=== PATIENT | female | born 1950 | race Caucasian/White ===

== ENCOUNTER → 2017-10-10 | Outpatient (CLI) | payer MEDICARE, BC ==
--- NOTE | 2017-10-10 14:20 | XR ---
EXAMINATION TYPE: XR chest 2V DATE OF EXAM: 10/10/2017 COMPARISON: Prior chest x-ray 04/11/2016 HISTORY: Cough TECHNIQUE: Frontal and lateral views of the chest are obtained. FINDINGS: The patient is rotated. Surgical clips present in the right upper quadrant. There is no fo mike air space opacity, pleural effusion, or pneumothorax seen. The cardiac silhouette size is within normal limits. Old left clavicular fracture appears healed. There is improved aeration as compared to prior exam. Increased AP diameter chest may be indicative of underlying COPD. The osseous structur es are intact. IMPRESSION: No acute cardiopulmonary process.
== END | disposition home or self-care (01) ==
LOC: RADXRMAIN 12:54
PROVIDERS: ATTEND Family Medicine
DX: R05 Cough (principal)
CPT/HCPCS: 71046

== ENCOUNTER → 2019-02-10 | Outpatient (CLI) | payer MEDICARE, BC ==
[2019-02-10 18:44] LABS: African American GFR (CKD) 86.6 (60.0-200.0)
[2019-02-10 19:42] LABS: Rheumatoid Factor <4 IU/mL (0-15)
[2019-02-10 19:52] LABS: Folate, Serum 11.5 ng/mL
[2019-02-10 22:51] LABS: Anti-DNA, DS unit <1.0 IU/mL; DNA Double-Stranded NEGATIVE (NEGATIVE)
[2019-02-12 15:25] LABS: Lyme IgG/IgM 0.08 Index
== END | disposition home or self-care (01) ==
LOC: LABWHC1 11:43
PROVIDERS: ATTEND Psychiatry & Neurology Neurology
DX: R41.3 Other amnesia (principal)
CPT/HCPCS: 36415; 82175; 82565; 82570; 82607; 82746; 83655; 83825; 84520; 86038; 86225; 86431; 86618

== ENCOUNTER 2020-06-28 11:19 | Inpatient (IN) | payer MEDICARE, BC ==
[2020-06-28] MEDS ORDERED: SODIUM CHLORIDE 0.9% 500 ML 500 ML IV ONE (11:37)
[2020-06-28] MEDS ORDERED: ONDANSETRON 4 MG/2 ML VIAL IVP STA (11:56)
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
--- NOTE | 2020-06-28 12:27 | XR ---
EXAMINATION TYPE: XR chest 1V portable DATE OF EXAM: 06/28/2020 COMPARISON: Prior chest x-ray 10/10/2017 HISTORY: Nausea and vomiting, suspected Covid pneumonia TECHNIQUE: Single frontal view of the chest is obtained. FINDINGS: There is patchy density in the left lung peripherally greater than right, pleural effusion , or pneumothorax seen. The cardiac silhouette size is within normal limits. There are overlying le ads, surgical clips again noted in the right upper quadrant. Aorta is dense. The osseous structures a re intact, old left clavicular fracture is healed and stable. IMPRESSION: Findings could be indicative of pneumonia, correlate, follow-up suggested
[2020-06-28 12:39] LABS: Basophils # (A) 0.1 k/uL (0-0.2); Basophils % (A) 1 %; Eosinophils # (A) 0.2 k/uL (0-0.7); Eosinophils % (A) 2 %; HCT 46.4 % (34.0-46.0); HGB 15.2 gm/dL (11.4-16.0); Lymphocytes # (A) 2.9 k/uL (1.0-4.8); Lymphocytes % (A) 28 %; MCH 30.6 pg (25.0-35.0); MCHC 32.7 g/dL (31.0-37.0); MCV 93.7 fL (80.0-100.0); Mean Platelet Volume 7.4; Monocytes # (A) 0.6 k/uL (0-1.0); Monocytes % (A) 6 %; Neutrophils # (A) 6.1 k/uL (1.3-7.7); Neutrophils % (A) 60 %; Platelet Count 449 k/uL (150-450); RBC 4.96 m/uL (3.80-5.40); RDW 12.4 % (11.5-15.5); WBC 10.1 k/uL (3.8-10.6)
[2020-06-28 12:51] LABS: Albumin 4.4 g/dL (3.5-5.0); C Reactive Protein 10.6 mg/L (<10.0); Calcium 10.1 mg/dL (8.4-10.2); Magnesium 2.1 mg/dL (1.6-2.3); Potassium 4.4 mmol/L (3.5-5.1); Total Bilirubin 0.7 mg/dL (0.2-1.3); Total Protein 7.4 g/dL (6.3-8.2)
[2020-06-28] MEDS ORDERED: KETOROLAC 15 MG/ML 1 ML VIAL IVP STA (13:00)
[2020-06-28] MEDS ORDERED: HYDROmorphone 0.5 MG/0.5 ML SYRINGE IVP STA (13:00)
[2020-06-28 13:01] LABS: INR 0.9 (<1.2); Prothrombin Time 9.7 sec (9.0-12.0)
[2020-06-28 13:09] LABS: D-Dimer 0.77 mg/L FEU (<0.60); Partial Thromboplastin Time 17.9 sec (22.0-30.0)
[2020-06-28] MEDS ORDERED: HEPARIN SODIUM,PORCINE 5,000 UNIT/ML 1 ML VIAL IV PRN (14:07)
[2020-06-28] MEDS ORDERED: ASPIRIN 325 MG TAB PO STA (14:07)
[2020-06-28] MEDS ORDERED: HEPARIN SODIUM,PORCINE 5,000 UNIT/ML 1 ML VIAL IV ONE (14:07)
[2020-06-28] MEDS ORDERED: ONDANSETRON 4 MG/2 ML VIAL IVP PRN (14:45)
[2020-06-28] MEDS ORDERED: NALOXONE 0.4 MG/ML 1 ML VIAL IV PRN (14:45)
[2020-06-28] MEDS ORDERED: ACETAMINOPHEN TAB 325 MG TAB PO PRN (14:45)
[2020-06-28] MEDS: HEPARIN SOD,PORK IN 0.45% NACL 25,000 UNIT in 0.45% NACL 1 250ML.BAG IV SCH (14:58)
--- NOTE | 2020-06-28 15:00 | CT ---
EXAMINATION TYPE: CT angio chest DATE OF EXAM: 06/28/2020 2:44 PM COMPARISON: 04/27/2016 HISTORY: Positive d-dimer CT DLP: 275.7 mGycm Automated exposure control for dose reduction was used. CONTRAST: CTA scan of the thorax is performed with IV Contrast, patient injected with 100, wasted 23 mL of Isov ue 370, pulmonary embolism protocol. . FINDINGS: LUNGS: There are patchy areas of infiltrate scattered bilaterally greater in the periphery. Some of t he nodular component. Findings could be on the basis of pneumonia. Neoplasm not excluded follow resol ution recommended. MEDIASTINUM: On axial image 48 there is a small focal filling defect within a right upper lobe pulmon terrence arterial branch. This could be artifactual although a small pulmonary embolism not excluded.. Th ere are no greater than 1 cm hilar or mediastinal lymph nodes. Coronary artery calcification noted. OTHER: Chronic deformity of the left clavicle. Hypertrophic and degenerative changes of the spine po stcholecystectomy changes noted. IMPRESSION: 1. There are scattered patchy areas of nodular infiltrate bilaterally was likely is postinfectious co rrelate for multifocal pneumonia. Underlying neoplasm not excluded although resolution. 2. There is no central pulmonary embolism. However, on axial image 48 there is a eccentric hypodensit y within upper lobe artery. This could be artifactual. Tiny pulmonary embolism not excluded correlate clinically.
[2020-06-28] MEDS: HYDROmorphone 0.5 MG/0.5 ML SYRINGE IVP PRN ×2 (15:05→23:28)
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
[2020-06-28 19:36] LABS: Ferritin 271.2 ng/mL (10.0-291.0)
[2020-06-28] MEDS: MEMANTINE 10 MG TAB PO SCH (21:30)
[2020-06-28] MEDS: ATORVASTATIN 20 MG TAB PO SCH (21:30)
[2020-06-28] MEDS: LORazepam 1 MG TAB PO SCH (21:30)
[2020-06-28] MEDS: METOPROLOL TARTRATE 50 MG TAB PO SCH (21:31)
[2020-06-28] MEDS: NITROGLYCERIN OINT 1 INCH/GM PACKET TOPICAL SCH ×2 (21:31→23:54)
[2020-06-28] MEDS: diphenhydrAMINE 50 MG CAP PO SCH (21:35)
[2020-06-29 05:40] LABS: Basophils # (A) 0.1 k/uL (0-0.2); Basophils % (A) 1 %; Eosinophils # (A) 0.2 k/uL (0-0.7); Eosinophils % (A) 2 %; HCT 35.7 % (34.0-46.0); Lymphocytes # (A) 2.1 k/uL (1.0-4.8); Lymphocytes % (A) 27 %; MCH 31.9 pg (25.0-35.0); MCV 93.9 fL (80.0-100.0); Monocytes # (A) 0.5 k/uL (0-1.0); Monocytes % (A) 6 %; Neutrophils # (A) 4.7 k/uL (1.3-7.7); Neutrophils % (A) 61 %; Platelet Count 253 k/uL (150-450); RDW 12.1 % (11.5-15.5); WBC 7.6 k/uL (3.8-10.6)
[2020-06-29 05:54] LABS: ALT 28 U/L (4-34); AST 123 U/L (14-36); African American GFR (CKD) >90 (>60 ml/min/1.73 sqM); Alkaline Phosphatase 92 U/L (38-126); Anion Gap 5 mmol/L; Blood Urea Nitrogen 16 mg/dL (7-17); Calcium 8.7 mg/dL (8.4-10.2); Carbon Dioxide 23 mmol/L (22-30); Chloride 105 mmol/L (98-107); Glucose 118 mg/dL (74-99); Non-African American GFR(CKD) >90 (>60 ml/min/1.73 sqM); Potassium 4.1 mmol/L (3.5-5.1); Sodium 133 mmol/L (137-145); Total Bilirubin 0.3 mg/dL (0.2-1.3); Total Protein 5.6 g/dL (6.3-8.2)
[2020-06-29 05:55] LABS: Albumin 3.1 g/dL (3.5-5.0)
[2020-06-29 06:03] LABS: HGB 12.1 gm/dL (11.4-16.0)
[2020-06-29] MEDS: HYDROmorphone 0.5 MG/0.5 ML SYRINGE IVP PRN (06:09)
[2020-06-29] MEDS: PANTOPRAZOLE 40 MG TABLET PO SCH (06:29)
[2020-06-29] MEDS ORDERED: ISOSORBIDE MONONITRATE ER 30 MG TAB.ER.24H PO SCH (09:00)
[2020-06-29] MEDS ORDERED: ATORVASTATIN 80 MG TAB PO STA (09:08)
[2020-06-29] MEDS ORDERED: ALPRAZolam 0.5 MG TAB PO PRN (09:08)
[2020-06-29] MEDS ORDERED: ASPIRIN 325 MG TAB PO STA (09:08)
[2020-06-29] MEDS ORDERED: ALPRAZolam 0.25 MG TAB PO PRN (09:08)
[2020-06-29] MEDS ORDERED: NITROGLYCERIN SL TABS 0.4 MG TAB SUBLINGUAL PRN (09:08)
[2020-06-29] MEDS ORDERED: SODIUM CHLORIDE 0.9% 1,000 ML in EMPTY BAG 1 BAG IV ONE (09:08)
[2020-06-29] MEDS: LORazepam 1 MG TAB PO SCH ×2 (09:13→21:22)
[2020-06-29] MEDS: MEMANTINE 10 MG TAB PO SCH ×2 (09:14→21:22)
[2020-06-29] MEDS: VITAMIN E (DL,TOCOPHERYL ACET) 400 UNIT CAP PO SCH (09:14)
[2020-06-29] MEDS: METOPROLOL TARTRATE 50 MG TAB PO SCH ×2 (09:14→21:22)
[2020-06-29] MEDS: NITROGLYCERIN OINT 1 INCH/GM PACKET TOPICAL SCH (09:15)
[2020-06-29] MEDS ORDERED: IV FLUID CONTINUATION 1,000 ML IV ONE (09:41)
[2020-06-29] MEDS ORDERED: MIDAZOLAM 2 MG/2 ML VIAL IVP ONE (09:53)
[2020-06-29] MEDS ORDERED: LIDOCAINE 1% INJ 10MG/ML (20 ML MDV) SQ ONE (10:07)
[2020-06-29] MEDS: VERAPAMIL SYRINGE (5 MG/10 ML) INTRAARTER ONE ×2 (10:08→10:18)
[2020-06-29] MEDS ORDERED: IOPAMIDOL-370 125ML BTL INJ ONE (10:18)
[2020-06-29] MEDS ORDERED: RX INFO: IV CONTRAST WAS GIVEN 1 EACH MISC MISCELLANE PRN (10:31)
[2020-06-29] MEDS ORDERED: SODIUM CHLORIDE 0.9% 1,000 ML IV SCH (10:45)
--- NOTE | 2020-06-29 11:16 | CC ---
CARDIAC CATHETERIZATION REPORT DATE OF SERVICE: June 29, 2020. PERFORMING PHYSICIAN: Rhett Lees MD. PROCEDURE PERFORMED: 1. Selective right and left coronary angiogram. 2. Left heart catheterization. INDICATION: This is a very pleasant 70-year-old female patient with hypertension and dyslipidemia who was admitted to the hospital with chest discomfort and ruled in for acute coronary syndrome. A heart catheterization was advised. APPROACH: Right radial artery. COMPLICATION: None. LEVEL OF SEDATION: Moderate with sedation length of 13 minutes. PROCEDURE DESCRIPTION: After obtaining an informed consent, the patient was brought to the cardiac lab clerk. The right radial artery was cannulated using micropuncture technique, the micropuncture wire passed easily then I placed a 6-[place] sheath at the right radial artery. Selective right and left coronary angiogram performed with JR4 and JL3.5 catheters. Left heart catheterization was performed using the JR4 catheter which crossed the aortic valve then I did pullback across the valve. The procedure was completed without any complication. SELECTIVE CORONARY ANGIOGRAM: 1. The right coronary artery is a large caliber vessel. It is a dominant vessel. The RCA is angiographically normal. It distally bifurcates into PDA and PLV branches. The PLV branch appeared to have intermediate lesion in the range of 50%. 2. The left main is angiographically normal. It bifurcates into LCX and LAD. 3. The LCX proximally is a large caliber vessel. It is a nondominant vessel and has a lesion appeared to be in the range of 50% as well. 4. The LAD: The LAD is angiographically normal. In the very proximal to midportion gives rise into a diagonal branch which has a lesion appeared to be in the range of 50% as well. HEMODYNAMICS: The LVEDP was 10 to 12 mmHg without significant gradient across the aortic valve. CONCLUSION: 1. Intermediate triple-vessel coronary artery disease. 2. Normal LVEDP. POSTPROCEDURE MANAGEMENT: 1. Medical treatment. 2. Follow up with the patient. MMODL / IJN: [id number] /
--- NOTE | 2020-06-29 11:50 | P.PN ---
Subjective Progress Note Date: 06/29/20 HISTORY OF PRESENT ILLNESS 70-year-old female one of Dr. Guajardo patient with past medical history of CAD post [place], history of hypertension hyperlipidemia who was diagnosed with Covid 19 back in June 12 did not require any hospitalization had mild hypoxia did not require any oxygen. Her was hospitalized this last week with severe Covid 19 pneumonitis has been in the ICU since. Patient woke up this morning and all of a sudden developed to have midsternal chest pain become severe very intense aggravated with activity and stress her symptoms did not resolve with aspirin or Tylenol ended up coming to the emergency department after doing nitroglycerin and morphine her symptom subtle down. Her first troponin was elevated d-dimer was slightly bit elevated as well chest x-ray was clear with no sign of infection at the time. Patient ended up going for CTA which was not conclusive for possible peripheral small pulmonary embolism we'll consult pulmonary the meanwhile patient will remain on heparin drip until this is excluded. Also the second troponin came back to be much higher her EKG was atypical doesn't show any significant ST elevation patient was diagnosed with possible non-ST [place] will be hospitalized seen cardiology will be kept nothing by mouth for possible going for heart cath tomorrow morning. 06/29: Patient is seen on the cardiac stepdown unit. Patient states she had a rough night with continued midsternal chest pain. She is currently nothing by mouth and on heparin drip, cardiology on consult. He underwent heart catheterization today with Dr. Lees that revealed intermediate triple-vessel coronary artery disease and normal LVEDP, recommendations for medical management. There is a consult in place for pulmonary medicine regarding p ossible small pulmonary embolism. Echocardiogram has been obtained and report is pending. Repeat troponins have been 2.630 and 19.9. Patient has been afebrile, heart rate 67, blood pressure 94/61, pulse ox 95% on room air. REVIEW OF SYSTEMS CONSTITUTIONAL: Well-developed no acute respiratory distress. No fevers EYES: No icterus sclerae, no conjunctivitis. EARS, NOSE, MOUTH, THROAT, and FACE: No sore throat, lymphadenopathy, carotid bruits or deformity. RESPIRATORY: Positive chest pain no shortness of breath CARDIOVASCULAR: Positive angina with mild PND and orthopnea no edema. GASTROINTESTINAL: No Abd pain, Nausea or vomiting, no Diarrhea or constipation, No GI Bleed, no distention or masses. GENITOURINARY: Negative for Hematuria or UTI, no kidney stones. INTEGUMENT/BREAST: Negative for any muscular injury with mild osteoarthritis.. HEMATOLOGIC/LYMPHATIC: Negative for bleed or purpura. MUSCULOSKELTAL: Negative for Myalgia or arthralgia. NEURLOGICAL: No LOC, Sz or syncope, blurred vision dizziness or abnormality.. BEHAVIORAL/PSYCH: Negative. ENDOCRINE: Negative. PHYSICAL EXAMINATION General Appearance: Alert, cooperative, no distress, appears stated age. Patient resting comfortably in bed. Neck HEENT: Supple, no lymphadenopathy, no thyroid enlargement, no carotid bruits. Lungs: Clear to auscultation without crackles or wheezes no rhonchi, no deformity. Chest Wall: Decrease expansion with deep inspiration no tenderness and no deformity was found on exam, no costochondral pain or discomfort. Heart: Regular rate and rhythm, S1, S2 normal, no murmur, rub or gallop. Back: Symmetric, no curvature, ROM normal, no CVA tenderness. Abdomen: Soft, non-tender, bowel sounds active all four quadrants, no masses, no organomegaly. Extremities: Extremities normal, atraumatic, no cyanosis or edema. Pulses: 2+ and symmetric. Skin: Skin color, texture, tugor normal, no rashes or lesions. Neurologic: Alert oriented x3 cranial nerves II through XII intact, no motor deficit, no abnormal balance or gait. ASSESSMENT AND PLAN 1 unstable angina and recurrent chest pain. 2 non-ST [place]. Heart catheterization as above. Continue medical management with Lipitor 20 mg at bedtime, Lopressor 50 mg twice daily. 3 recent history of Covid 19 pneumonitis: Patient is not on any medication or management for that this point to keep in mind the possibility of coagulopathy and clotting is very high which why he should be careful about interpretation of the CT at this point. 4 small pulmonary embolism: With slightly positive CTA, patient be kept on heparin drip still seen pulmonary and possible starting anticoagulation after her heart cath. 5 history of CAD: Patient seen Dr. Mark on regular basis and had valvular heart disease as well no intervention require so far. 6 Hypertension: Has been on metoprolol 50 mg twice a day and isosorbide 50 mg daily. 7 hyperlipidemia: Remain on simvastatin 40 mg daily. 8 mild memory loss: Patient has been on Namenda 10 mg twice a day. 9 severe GERD: Continue patient on omeprazole 20 mg twice a day. 10 DVT prophylaxis: Patient is on anticoagulation currently. CODE STATUS: Full code. DISCHARGE PLAN Home. Impression and plan of care have been directed as dictated by the signing physician. Maryellen Raya nurse practitioner acting as scribe for signing physician. Objective - Vital Signs Vital signs: Vital Signs Temp 98.1 F 06/29/20 03:48 Pulse 61 06/29/20 03:48 Resp 18 06/29/20 03:48 BP 99/58 06/29/20 03:48 Pulse Ox 96 06/29/20 03:48 Intake & Output 06/28/20 06/29/20 06/29/20 18:59 06:59 18:59 Intake Total 67.393 Balance 67.393 Weight 77.111 kg 75 kg Intake: Intake, IV Titration 67.393 Amount Heparin Sod,Pork in 0.45% 67.393 NaCl 25,000 unit In 0.45 % NaCl 1 250ml.bag @ 12 UNITS/KG/HR 9.253 mls/hr IV .Q24H [facility] Rx#: [id number] Other: Voiding Method Toilet # Voids 2 1 - Labs CBC & Chem 7: 06/29/20 05:19 06/29/20 05:19 Labs: Abnormal Lab Results - Last 24 Hours (Table) 06/28/20 06/28/20 06/28/20 Range/Units 12:11 12:11 12:11 Hct 46.4 H (34.0-46.0) % APTT 17.9 L (22.0-30.0) sec D-Dimer 0.77 H (<0.60) mg/L FEU Sodium (137-145) mmol/L Carbon Dioxide 20 L (22-30) mmol/L Glucose 125 H (74-99) mg/dL Plasma Lactic Acid Harris (0.7-2.0) mmol/L AST (14-36) U/L Alkaline Phosphatase 128 H (38-126) U/L Troponin I (0.000-0.034) ng/mL C-Reactive Protein 10.6 H (<10.0) mg/L Total Protein (6.3-8.2) g/dL Albumin (3.5-5.0) g/dL 06/28/20 06/28/20 06/28/20 Range/Units 12:11 12:11 15:24 Hct (34.0-46.0) % APTT (22.0-30.0) sec D-Dimer (<0.60) mg/L FEU Sodium (137-145) mmol/L Carbon Dioxide (22-30) mmol/L Glucose (74-99) mg/dL Plasma Lactic Acid Harris 2.2 H* (0.7-2.0) mmol/L AST (14-36) U/L Alkaline Phosphatase (38-126) U/L Troponin I 0.193 H* 0.687 H* (0.000-0.034) ng/mL C-Reactive Protein (<10.0) mg/L Total Protein (6.3-8.2) g/dL Albumin (3.5-5.0) g/dL 06/28/20 06/28/20 06/29/20 Range/Units 18:21 21:21 05:19 Hct (34.0-46.0) % APTT 68.2 H (22.0-30.0) sec D-Dimer (<0.60) mg/L FEU Sodium 133 L (137-145) mmol/L Carbon Dioxide (22-30) mmol/L Glucose 118 H (74-99) mg/dL Plasma Lactic Acid Harris (0.7-2.0) mmol/L AST 123 H (14-36) U/L Alkaline Phosphatase (38-126) U/L Troponin I 2.630 H* (0.000-0.034) ng/mL C-Reactive Protein (<10.0) mg/L Total Protein 5.6 L (6.3-8.2) g/dL Albumin 3.1 L (3.5-5.0) g/dL 06/29/20 Range/Units 05:19 Hct (34.0-46.0) % APTT 54.8 H (22.0-30.0) sec D-Dimer (<0.60) mg/L FEU Sodium (137-145) mmol/L Carbon Dioxide (22-30) mmol/L Glucose (74-99) mg/dL Plasma Lactic Acid Harris (0.7-2.0) mmol/L AST (14-36) U/L Alkaline Phosphatase (38-126) U/L Troponin I (0.000-0.034) ng/mL C-Reactive Protein (<10.0) mg/L Total Protein (6.3-8.2) g/dL Albumin (3.5-5.0) g/dL
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
[2020-06-29] MEDS: ISOSORBIDE MONONITRATE ER 30 MG TAB.ER.24H PO SCH (15:08)
[2020-06-29] MEDS: HEPARIN SOD,PORK IN 0.45% NACL 25,000 UNIT in 0.45% NACL 1 250ML.BAG IV SCH (16:57)
--- NOTE | 2020-06-29 17:05 | ECHOF ---
Referral Reason:NSTEMI MEASUREMENTS -------- HEIGHT: 160.0 cm WEIGHT: 77.1 kg BP: IVSd: 1.4 cm (0.6 - 1.1) LVIDd: 4.2 cm (3.9 - 5.3) LVPWd: 1.3 cm (0.6 - 1.1) IVSs: 1.5 cm LVIDs: 3.5 cm LVPWs: 1.3 cm LA Diam: 4.2 cm (2.7 - 3.8) LAESV Index (A-L): 22.37 ml/m MV E Nato: 0.62 m/s MV DecT: 163 ms MV A Nato: 0.44 m/s MV E/A Ratio: 1.41 RAP: 5.00 mmHg RVSP: 35.15 mmHg FINDINGS -------- Sinus rhythm. This was a technically good study. Positive Covid patient. LV size, wall thickness and systolic function are normal, with an EF greater than 55%. The left jacob tricular size is normal. The right ventricle is normal in size. The left atrium is mildly dilated. The right atrial size is normal. There is mild aortic valve sclerosis. There is no evidence of aortic regurgitation. Mild mitral regurgitation is present. Mild tricuspid regurgitation present. Right ventricular systolic pressure is normal at < 35 mmHg. There is no pulmonic regurgitation present. The aortic root size is normal. There is no pericardial effusion. CONCLUSIONS -------- 1. Positive Covid patient. 2. LV size, wall thickness and systolic function are normal, with an EF greater than 55%. 3. The left ventricular size is normal. 4. The right ventricle is normal in size. 5. The left atrium is mildly dilated. 6. The right atrial size is normal. 7. There is mild aortic valve sclerosis. 8. Mild mitral regurgitation is present. 9. Mild tricuspid regurgitation present. 10. The aortic root size is normal. 11. There is no pericardial effusion. BIOMETRICS ANALYST: Parul King RDCS
[2020-06-29] MEDS: ACETAMINOPHEN TAB 325 MG TAB PO PRN (17:10)
[2020-06-29] MEDS: ATORVASTATIN 20 MG TAB PO SCH (21:22)
[2020-06-29] MEDS: diphenhydrAMINE 50 MG CAP PO SCH (21:23)
[2020-06-29] MEDS ORDERED: LORATADINE 10 MG TAB PO SCH (21:45)
[2020-06-29] MEDS: LORATADINE 10 MG TAB PO SCH (21:55)
[2020-06-30] MEDS: ACETAMINOPHEN TAB 325 MG TAB PO PRN (03:28)
[2020-06-30] MEDS ORDERED: HEPARIN SODIUM,PORCINE 10,000 UNIT in SODIUM CHLORIDE 0.9% 1,000 ML IRRIGATION PRN (07:00)
[2020-06-30] MEDS ORDERED: HEPARIN SODIUM,PORCINE 2,500 UNIT in SODIUM CHLORIDE 0.9% 250 ML IRRIGATION PRN (07:00)
[2020-06-30] MEDS: PANTOPRAZOLE 40 MG TABLET PO SCH (07:03)
[2020-06-30 07:34] LABS: Basophils % (A) 0 %; Eosinophils # (A) 0.1 k/uL (0-0.7); Eosinophils % (A) 1 %; HCT 37.1 % (34.0-46.0); Lymphocytes # (A) 1.7 k/uL (1.0-4.8); Lymphocytes % (A) 19 %; MCH 30.8 pg (25.0-35.0); MCHC 32.3 g/dL (31.0-37.0); MCV 95.2 fL (80.0-100.0); Mean Platelet Volume 6.9; Monocytes # (A) 0.7 k/uL (0-1.0); Monocytes % (A) 8 %; Neutrophils # (A) 6.1 k/uL (1.3-7.7); Neutrophils % (A) 69 %; Platelet Count 279 k/uL (150-450); RBC 3.89 m/uL (3.80-5.40); RDW 12.5 % (11.5-15.5); WBC 8.9 k/uL (3.8-10.6)
[2020-06-30] MEDS: LORATADINE 10 MG TAB PO SCH (08:56)
[2020-06-30] MEDS: MEMANTINE 10 MG TAB PO SCH (08:56)
[2020-06-30] MEDS: LORazepam 1 MG TAB PO SCH (08:56)
[2020-06-30] MEDS: METOPROLOL TARTRATE 50 MG TAB PO SCH (08:56)
[2020-06-30] MEDS: ISOSORBIDE MONONITRATE ER 30 MG TAB.ER.24H PO SCH (08:57)
[2020-06-30] MEDS: VITAMIN E (DL,TOCOPHERYL ACET) 400 UNIT CAP PO SCH (09:18)
[2020-06-30 12:11] VITALS: BP 114/65; PULSE 72; RESP 17; TEMP 98.6
--- NOTE | 2020-06-30 13:27 | P.DS ---
Providers Date of admission: 06/28/20 14:45 Expected date of discharge: 06/30/20 Attending physician: Kd Martin Consults: 06/28/20 14:46 Consult Physician Routine Consulting Provider: Haroldo Boyle Consult Reason/Comments: NSTEMI, COVID Do you want consulting provider notified?: Already Contacted 06/28/20 18:08 Consult Physician Routine Consulting Provider: Michael Hebert Consult Reason/Comments: COVID and ?? small PE Do you want consulting provider notified?: Yes Primary care physician: Karlos Guajardo [facility] Course: HISTORY OF PRESENT ILLNESS 70-year-old female one of Dr. Guajardo patient with past medical history of CAD post RI, history of hypertension hyperlipidemia who was diagnosed with Covid 19 back in June 12 did not require any hospitalization had mild hypoxia did not require any oxygen. Her was hospitalized this last week with severe Covid 19 pneumonitis has been in the ICU since. Patient woke up this morning and all of a sudden developed to have midsternal chest pain become severe very intense aggravated with activity and stress her symptoms did not resolve with aspirin or Tylenol ended up coming to the emergency department after doing nitroglycerin and morphine her symptom subtle down. Her first troponin was elevated d-dimer was slightly bit elevated as well chest x-ray was clear with no sign of infection at the time. Patient ended up going for CTA which was not conclusive for possible peripheral small pulmonary embolism we'll consult pulmonary the meanwhile patient will remain on heparin drip until this is excluded. Also the second troponin came back to be much higher her EKG was atypical doesn't show any significant ST elevation patient was diagnosed with possible non-ST RI will be hospitalized seen cardiology will be kept nothing by mouth for possible going for heart cath tomorrow morning. 06/29: Patient is seen on the cardiac stepdown unit. Patient states she had a rough night with continued midsternal chest pain. She is currently nothing by mouth and on heparin drip, cardiology on consult. He underwent heart catheterization today with Dr. Lees that revealed intermediate triple-vessel coronary artery disease and normal LVEDP, recommendations for medical management. There is a consult in place for pulmonary medicine regarding possible small pulmonary embolism. Echocardiogram has been obtained and report is pending. Repeat troponins have been 2.630 and 19.9. Patient has been afebrile, heart rate 67, blood pressure 94/61, pulse ox 95% on room air. 06/30: Patient has been seen by pulmonary medicine and acute pulmonary embolism ruled out. Patient will have follow-up regarding nodular densities with CAT scan. Echocardiogram reveals EF of greater than 55%, mild aortic valve sclerosis, mild mitral regurgitation, mild tricuspid regurgitation. Patient denies having any chest pain. No worsening shortness of breath. Temperature max 100.4, heart rate 72, blood pressure 114/65, pulse ox 97% on room air. CBC is unremarkable. Patient will be discharged home today in stable condition. ASSESSMENT AND PLAN 1 unstable angina and recurrent chest pain. 2 non-ST RI by heart catheterization 3 recent history of Covid 19 pneumonitis 4 small pulmonary embolism ruled out by pulmonary medicine 5 history of CAD 6 Hypertension 7 hyperlipidemia 8 mild memory loss 9 severe GERD. DISCHARGE PLAN Home. Impression and plan of care have been directed as dictated by the signing physician. Maryellen Raya nurse practitioner acting as scribe for signing physician. Patient Condition at Discharge: Good Plan - Discharge Summary Discharge Rx Participant: Yes New Discharge Prescriptions: New Loratadine [Claritin] 10 mg PO DAILY tab Triamcinolone Acetonide [Nasacort] 1 spray EA NOSTRIL DAILY #1 spr Continue Omeprazole [PriLOSEC] 20 mg PO BID Metoprolol Tartrate [Lopressor] 50 mg PO BID #60 tab Simvastatin [Zocor] 40 mg PO HS Vitamin E (Dl,Tocopheryl Acet) [Vitamin E] 800 unit PO DAILY LORazepam [Ativan] 1 mg PO BID diphenhydrAMINE [Benadryl] 50 mg PO HS Memantine [Namenda] 10 mg PO BID Isosorbide Mononitrate ER [Imdur] 30 mg PO DAILY Discharge Medication List Omeprazole [PriLOSEC] 20 mg PO BID 04/20/14 [History] Metoprolol Tartrate [Lopressor] 50 mg PO BID #60 tab 05/09/15 [Rx] LORazepam [Ativan] 1 mg PO BID 04/11/16 [History] Simvastatin [Zocor] 40 mg PO HS 04/11/16 [History] Vitamin E (Dl,Tocopheryl Acet) [Vitamin E] 800 unit PO DAILY 04/11/16 [History] Isosorbide Mononitrate ER [Imdur] 30 mg PO DAILY 06/28/20 [History] Memantine [Namenda] 10 mg PO BID 06/28/20 [History] diphenhydrAMINE [Benadryl] 50 mg PO HS 06/28/20 [History] Loratadine [Claritin] 10 mg PO DAILY tab 06/30/20 [Rx] Triamcinolone Acetonide [Nasacort] 1 spray EA NOSTRIL DAILY #1 spr 06/30/20 [Rx] Follow up Appointment(s)/Referral(s): Karlos Guajardo DO [Primary Care Provider] - 1 Week
--- NOTE | 2020-06-30 14:57 | P.PN ---
Subjective HISTORY OF PRESENT ILLNESS: This is a 70-year-old female with a past medical history significant for hypertension, hyperlipidemia, and GERD. Patient follows in the office with Dr. Lees. We have been asked to see the patient in consultation for elevated troponins. Patient states she was diagnosed with Covid on 06/12/2020. Patient states the majority of her Covid symptoms resolved about 4 days ago. She presented to the hospital yesterday with a chief complaint of chest pain and shortness of breath. She reports the pain feels like a burning sensation in the epigastric region. She reports having nausea and episodes of diarrhea at home. The patient is still complaining of epigastric burning at the time of examination. She states the pain is not worse with deep inspiration or movement. The patient had a Lexiscan performed in May 2020 which was negative for ischemia. She also underwent a cardiac catheterization in 2014 revealing normal coronary arteries. 06/30/20 Patient seen and examined. Patient underwent left heart catheterization yesterday which revealed mild to moderate disease however no obstructive disease. On further review of imaging there does appear to be a likely fistula coming from the diagonal branch possibly to the pulmonary artery or left atrium. She denies any further chest pain or pressure. She states she feels well. Heart catheterization was performed to the right radial approach. She is anxio us to go home. REVIEW OF SYSTEMS: At the time of my exam: CONSTITUTIONAL: Denies fever or chills. HEENT: Denies blurred vision, vision changes, or eye pain. Denies hemoptysis CARDIOVASCULAR: Reports chest pain near epigastric region. Denies orthopnea, PND or palpitations RESPIRATORY: No shortness of breath. GASTROINTESTINAL: Denies abdominal pain. Denies nausea or vomiting. HEMATOLOGIC: Denies bleeding disorders. GENITOURINARY: Denies any blood in urine. SKIN: Denies pruitis. Denies rash. PHYSICAL EXAM: VITAL SIGNS: Reviewed. GENERAL: Well-developed in no acute distress. HEENT: Head is normocephalic. Pupils are equal, round. Sclerae anicteric. Mucous membranes of the mouth are moist. Neck supple. No JVD or thyromegaly LUNGS: Respirations even and unlabored. Lungs essentially clear to auscultation bilaterally. HEART: Regular rate and rhythm. S1 and S2 heard. ABDOMEN: Soft. Nondistended. Nontender. EXTREMITIES: Normal range of motion. No clubbing or cyanosis. Peripheral pul ses intact. No lower extremity edema NEUROLOGIC: Awake and alert. Oriented x 3. ASSESSMENT: Non-ST elevated myocardial infection, possible stress-induced however ejection fraction 55% without regional wall motion abnormalities. Heart catheterization shows normal coronary arteries. 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 We did discuss with patient to take a baby aspirin until she follows up with Dr. Lees. Pulmonology has not recommended any anticoagulation going forward and will have a repeat CAT scan down the road. Continue with home medical regimen. Heart catheterization shows no obstructive disease. There is a question of a small coronary fistula however likely of no real clinical significance. Outpatient follow-up in 1-2 weeks. Objective - Vital Signs Vital signs: Vital Signs Temp 98.6 F 06/30/20 12:00 Pulse 72 06/30/20 12:00 Resp 17 06/30/20 12:00 BP 114/65 06/30/20 12:00 Pulse Ox 97 06/30/20 12:00 Intake & Output 06/29/20 06/30/20 06/30/20 18:59 06:59 18:59 Intake Total 555 1200 Balance 555 1200 Weight 78.5 kg Intake: IV 75 Oral 480 1200 Other: Voiding Method Toilet Toilet Toilet # Voids 2 2 2 - Labs CBC & Chem 7: 06/30/20 06:48 06/29/20 05:19 Labs: Abnormal Lab Results - Last 24 Hours (Table) 06/29/20 06/30/20 Range/Units 14:16 06:48 APTT 21.4 L (22.0-30.0) sec Coronavirus (PCR) Detected A (Not Detectd) Microbiology - Last 24 Hours (Table) 06/28/20 12:00 Blood Culture - Preliminary Blood No Growth after 48 hours 06/28/20 11:50 Blood Culture - Preliminary Blood No Growth after 48 hours
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
== END 2020-06-30 15:40 | disposition home or self-care (01) | DRG 280 ==
LOC: EC 11:19 → 3SCARD 14:45
PROVIDERS: ADMIT Internal Medicine Geriatric Medicine; ATTEND Internal Medicine Geriatric Medicine
PROC: 4A023N7 Measurement of Cardiac Sampling and Pressure, Left Heart, Percutaneous Approach (ICD-10-PCS; principal; 2020-06-29 10:20)
PROC: B2111ZZ Fluoroscopy of Multiple Coronary Arteries using Low Osmolar Contrast (ICD-10-PCS; principal; 2020-06-29 10:20)
DX: I21.4 Non-ST elevation (NSTEMI) myocardial infarction (principal); U07.1 COVID-19; I26.99 Other pulmonary embolism without acute cor pulmonale; J90 Pleural effusion, not elsewhere classified; I25.110 Atherosclerotic heart disease of native coronary artery with unstable angina pectoris; K44.9 Diaphragmatic hernia without obstruction or gangrene; E78.5 Hyperlipidemia, unspecified; I10 Essential (primary) hypertension; I25.2 Old myocardial infarction; K21.9 Gastro-esophageal reflux disease without esophagitis; F41.9 Anxiety disorder, unspecified; E73.9 Lactose intolerance, unspecified; L71.9 Rosacea, unspecified; R11.2 Nausea with vomiting, unspecified; R19.7 Diarrhea, unspecified; R41.3 Other amnesia; N39.3 Stress incontinence (female) (male); M19.90 Unspecified osteoarthritis, unspecified site; Z79.899 Other long term (current) drug therapy; Z87.820 Personal history of traumatic brain injury; Z85.828 Personal history of other malignant neoplasm of skin; Z90.89 Acquired absence of other organs; Z90.49 Acquired absence of other specified parts of digestive tract; Z87.448 Personal history of other diseases of urinary system; Z90.710 Acquired absence of both cervix and uterus; Z87.42 Personal history of other diseases of the female genital tract; Z87.19 Personal history of other diseases of the digestive system; Z96.642 Presence of left artificial hip joint; Z98.42 Cataract extraction status, left eye; Z98.41 Cataract extraction status, right eye; Z87.01 Personal history of pneumonia (recurrent); Z98.890 Other specified postprocedural states; Z88.5 Allergy status to narcotic agent; Z82.49 Family history of ischemic heart disease and other diseases of the circulatory system; Z80.0 Family history of malignant neoplasm of digestive organs
CPT/HCPCS: 36415; 71045; 71275; 80053; 82728; 83605; 83615; 83735; 84145; 84484; 85025; 85379; 85610; 85730; 86140; 87040; 87635; 93005; 93306; 93458; 96365; 96366; 96375; 96376; 99291

== ENCOUNTER 2020-07-16 00:40 | Inpatient (IN) | payer MEDICARE, BC ==
[2020-07-16] MEDS ORDERED: ONDANSETRON 4 MG/2 ML VIAL IVP STA (00:54)
[2020-07-16] MEDS ORDERED: SODIUM CHLORIDE 0.9% 500 ML 500 ML IV STA (00:54)
[2020-07-16] MEDS ORDERED: DIAZEPAM 5 MG/ML 2 ML INJ IVP STA (00:54)
[2020-07-16] MEDS ORDERED: MECLIZINE 12.5 MG TAB PO STA (00:54)
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
[2020-07-16 01:28] LABS: Basophils # (A) 0.1 k/uL (0-0.2); Basophils % (A) 2 %; Eosinophils # (A) 0.2 k/uL (0-0.7); Eosinophils % (A) 3 %; HCT 38.7 % (34.0-46.0); HGB 12.9 gm/dL (11.4-16.0); Lymphocytes % (A) 28 %; MCH 31.2 pg (25.0-35.0); MCHC 33.3 g/dL (31.0-37.0); MCV 93.9 fL (80.0-100.0); Mean Platelet Volume 6.8; Monocytes # (A) 0.4 k/uL (0-1.0); Monocytes % (A) 6 %; Neutrophils # (A) 4.3 k/uL (1.3-7.7); Neutrophils % (A) 59 %; Platelet Count 291 k/uL (150-450); RBC 4.13 m/uL (3.80-5.40); RDW 12.6 % (11.5-15.5); WBC 7.3 k/uL (3.8-10.6)
[2020-07-16 01:35] LABS: ALT 24 U/L (4-34); AST 29 U/L (14-36); African American GFR (CKD) >90 (>60 ml/min/1.73 sqM); Albumin 4.1 g/dL (3.5-5.0); Alkaline Phosphatase 110 U/L (38-126); Anion Gap 14 mmol/L; Blood Urea Nitrogen 18 mg/dL (7-17); Calcium 9.7 mg/dL (8.4-10.2); Carbon Dioxide 20 mmol/L (22-30); Chloride 105 mmol/L (98-107); Glucose 104 mg/dL (74-99); Non-African American GFR(CKD) 82 (>60 ml/min/1.73 sqM); Potassium 3.5 mmol/L (3.5-5.1); Sodium 139 mmol/L (137-145); Total Bilirubin 0.3 mg/dL (0.2-1.3)
--- NOTE | 2020-07-16 01:36 | CT ---
EXAM: CT Head Without Intravenous Contrast CLINICAL HISTORY: ITS.REASON CT Reason: Dizziness; nystagmus TECHNIQUE: Axial computed tomography images of the head/brain without intravenous contrast. CTDI is 49.27 mGy and DLP is 1125.40 mGy-cm. This CT exam was performed using one or more of the following dose reduction techniques: automated exposure control, adjustment of the mA and/or kV according to patient size, and/or use of iterative reconstruction technique. COMPARISON: CT head 04/27/16 FINDINGS: Brain: No acute intracranial hemorrhage, mass-effect, or edema. Wu- white matter differentiation is preserved. Ventricles: No hydrocephalus. Bones/joints: Unremarkable. No acute fracture. Soft tissues: Unremarkable. Vasculature: Intracranial atherosclerosis. Sinuses: Unremarkable as visualized. No acute sinusitis. Mastoid air cells: Unremarkable as visualized. No mastoid effusion. Orbits: Status post bilateral lens replacements. IMPRESSION: No acute intracranial process.
[2020-07-16 01:45] LABS: INR 0.9 (<1.2); Prothrombin Time 9.8 sec (9.0-12.0)
[2020-07-16] MEDS ORDERED: ONDANSETRON 4 MG/2 ML VIAL IVP PRN (02:09)
[2020-07-16] MEDS ORDERED: NALOXONE 0.4 MG/ML 1 ML VIAL IV PRN (02:09)
[2020-07-16] MEDS ORDERED: MECLIZINE 25 MG TAB PO PRN (02:10)
[2020-07-16] MEDS ORDERED: DIAZEPAM 5 MG/ML 2 ML INJ IVP PRN (02:10)
[2020-07-16] MEDS ORDERED: SODIUM CHLORIDE 0.9% 1,000 ML IV SCH (02:15)
[2020-07-16 05:32] LABS: Appearance,Urine Clear (Clear); Bilirubin,Urine Negative (Negative); Blood,Urine Negative (Negative); Color,Urine Light Yellow; Glucose,Urine (UA) Negative (Negative); Ketones,Urine Negative (Negative); Leukocyte Esterase,Urine Negative (Negative); Nitrite,Urine Negative (Negative); PH, Urine 6.5 (5.0-8.0); Protein,Urine Negative (Negative); Specific Gravity,Urine 1.008 (1.001-1.035); Urobilinogen,Urine <2.0 mg/dL (<2.0)
[2020-07-16 10:56] VITALS: RESP 16
[2020-07-16] MEDS ORDERED: LORazepam 1 MG TAB PO SCH (13:15)
[2020-07-16 15:05] VITALS: BP 110/70; PULSE 72; TEMP 98.2
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
== END 2020-07-16 15:14 | disposition home or self-care (01) | DRG 149 ==
LOC: EC 00:40 → 4SSUR 03:17 → EC 04:07 → OBSVTOIN 09:19
PROVIDERS: ADMIT Family Medicine; ATTEND Family Medicine
DX: H83.09 Labyrinthitis, unspecified ear (principal); U07.1 COVID-19; E73.9 Lactose intolerance, unspecified; I10 Essential (primary) hypertension; E78.5 Hyperlipidemia, unspecified; F41.9 Anxiety disorder, unspecified; K21.9 Gastro-esophageal reflux disease without esophagitis; N39.3 Stress incontinence (female) (male); K44.9 Diaphragmatic hernia without obstruction or gangrene; I25.10 Atherosclerotic heart disease of native coronary artery without angina pectoris; I35.8 Other nonrheumatic aortic valve disorders; H55.09 Other forms of nystagmus; H53.2 Diplopia; I25.2 Old myocardial infarction; L71.9 Rosacea, unspecified; M19.90 Unspecified osteoarthritis, unspecified site; R41.3 Other amnesia; Z79.899 Other long term (current) drug therapy; Z85.828 Personal history of other malignant neoplasm of skin; Z87.820 Personal history of traumatic brain injury; Z90.89 Acquired absence of other organs; Z90.49 Acquired absence of other specified parts of digestive tract; Z90.710 Acquired absence of both cervix and uterus; Z87.42 Personal history of other diseases of the female genital tract; Z96.642 Presence of left artificial hip joint; Z98.42 Cataract extraction status, left eye; Z98.41 Cataract extraction status, right eye; Z87.19 Personal history of other diseases of the digestive system; Z87.448 Personal history of other diseases of urinary system; Z98.890 Other specified postprocedural states; Z88.5 Allergy status to narcotic agent; Z82.49 Family history of ischemic heart disease and other diseases of the circulatory system; Z80.0 Family history of malignant neoplasm of digestive organs
CPT/HCPCS: 36415; 70450; 80053; 81003; 84484; 85025; 85610; 85730; 87635; 93005; 96361; 96374; 96375; 99285

== ENCOUNTER 2021-05-06 17:50 | Inpatient (IN) | payer MEDICARE, BC ==
[2021-05-06] MEDS ORDERED: NITROGLYCERIN OINT 1 INCH/GM PACKET TOPICAL STA (18:03)
[2021-05-06] MEDS ORDERED: ASPIRIN 81 MG PO STA (18:03)
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
[2021-05-06] MEDS ORDERED: DILTIAZEM 125 MG in SODIUM CHLORIDE 0.9% 100 ML IV SCH (18:15)
[2021-05-06 18:28] LABS: Basophils # (A) 0.1 k/uL (0-0.2); Basophils % (A) 1 %; Eosinophils # (A) 0.1 k/uL (0-0.7); Eosinophils % (A) 1 %; HCT 43.5 % (34.0-46.0); HGB 14.1 gm/dL (11.4-16.0); Lymphocytes # (A) 2.6 k/uL (1.0-4.8); Lymphocytes % (A) 31 %; MCH 30.8 pg (25.0-35.0); MCHC 32.4 g/dL (31.0-37.0); MCV 95.1 fL (80.0-100.0); Mean Platelet Volume 7.6; Monocytes # (A) 0.5 k/uL (0-1.0); Monocytes % (A) 6 %; Neutrophils # (A) 4.8 k/uL (1.3-7.7); Neutrophils % (A) 58 %; Platelet Count 263 k/uL (150-450); RBC 4.58 m/uL (3.80-5.40); RDW 12.2 % (11.5-15.5); WBC 8.3 k/uL (3.8-10.6)
[2021-05-06 18:40] LABS: Albumin 4.3 g/dL (3.5-5.0); Magnesium 1.9 mg/dL (1.6-2.3); Potassium 4.1 mmol/L (3.5-5.1); Total Bilirubin 0.5 mg/dL (0.2-1.3); Total Protein 7.1 g/dL (6.3-8.2)
[2021-05-06 18:49] LABS: INR 0.9 (<1.2); Prothrombin Time 9.8 sec (9.0-12.0)
[2021-05-06 18:56] LABS: Partial Thromboplastin Time 21.6 sec (22.0-30.0)
--- NOTE | 2021-05-06 18:57 | XR ---
EXAMINATION TYPE: XR chest 1V portable DATE OF EXAM: 05/06/2021 COMPARISON: 06/28/2020 HISTORY: Chest pain TECHNIQUE: FINDINGS: There is no heart failure nor confluent pneumonic infiltrate. Costophrenic angles are clear . There are chest leads. IMPRESSION: No active cardiopulmonary disease. There is clearing of the mild infiltrate in the left l severo field compared to old exam.
[2021-05-06] MEDS ORDERED: NITROGLYCERIN SL TABS 0.4 MG TAB SUBLINGUAL PRN (19:48)
[2021-05-06] MEDS ORDERED: HEPARIN SODIUM 1,000 UN/ML (10ML VL) IV ONE (19:48)
[2021-05-06] MEDS ORDERED: HEPARIN SOD,PORK IN 0.45% NACL 25,000 UNIT in 0.45% NACL 1 250ML.BAG IV SCH (20:00)
[2021-05-07] MEDS ORDERED: IBUPROFEN 600 MG TAB PO STA (01:03)
[2021-05-07] MEDS: LORazepam 1 MG TAB PO PRN ×2 (01:06→08:01)
[2021-05-07] MEDS ORDERED: ASPIRIN 325 MG TAB PO SCH (09:00)
[2021-05-07 09:02] LABS: Chol/HDL Ratio 2.39 Ratio; LDL Cholesterol,Calculated 85.7 mg/dL (0.0-131.0); VLDL Calculation 15.58 mg/dL (5.00-40.00)
[2021-05-07] MEDS ORDERED: ATORVASTATIN 20 MG TAB PO SCH (09:30)
[2021-05-07] MEDS ORDERED: METOPROLOL TARTRATE 50 MG TAB PO SCH (09:30)
[2021-05-07] MEDS: APIXABAN 5 MG TAB PO SCH ×2 (09:31→21:14)
--- NOTE | 2021-05-07 12:18 | CONS ---
CONSULTATION Анна Garcia is a lady with history of hypertension, hypercholesterolemia, noncritical CAD, who sees Dr. Lees in the outpatient setting. She came into the hospital complaining of discomfort in the chest and also felt some palpitations. After arrival, she was found to be in atrial fibrillation with a moderate ventricular rate. The rate has improved, but she remains in atrial fibrillation, hemodynamically stable. Troponins are negative. She is resting comfortably at the time of my evaluation. She had sharp pain in the chest on the left lateral aspect and also in the left anterior chest that lasted about 10 to 15 minutes. She also had some palpitations but no dizziness, lightheadedness or syncope. She had a previous cardiac catheterization performed by Dr. Lees in June of this year. Cardiac catheterization at that time revealed moderate 50% disease in the PLV branch of a dominant RCA. Left main was normal. LAD had a diagonal branch of 50% narrowing. Circumflex also had a 50% narrowing. She was advised medical therapy. At the time of my evaluation, she is comfortable resting, has no chest pain or shortness of breath. PAST MEDICAL HISTORY: 1. Noncritical CAD. 2. Hypertension. 3. Hyperlipidemia. 4. No evidence of any documented prior myocardial infarction. MEDICATIONS: Medications at home include Crestor 40 mg daily, aspirin 81 mg daily, metoprolol tartrate 50 mg daily, Namenda and Imdur 30 mg daily. ALLERGIES: MORPHINE. PHYSICAL EXAMINATION: On examination, blood pressure is 128/70, pulse rate is about 80 to 90, irregular. HEENT unremarkable. Fundus was not examined by me. Neck is supple. There is no JVD. I do not hear a carotid bruit. Heart exam reveals S1, S2 with irregular rhythm. No significant murmurs. Lungs are clear. Abdomen is soft, nontender. Lower extremities reveal normal pulses. No edema. Central nervous system is normal. IMPRESSION: 1. New-onset atrial fibrillation with rapid ventricular rate. 2. Moderate noncritical coronary artery disease. 3. Hyperlipidemia. 4. No evidence of any myocardial infarction. RECOMMENDATIONS: I am recommending that we add a statin, metoprolol tartrate 50 mg b.i.d., Eliquis 5 mg b.i.d., discontinue the Cardizem drip and see how she does. We will optimize rate control and obtain also an assessment of LV function by echo and patient hopefully can be discharged once rate control is achieved. I discussed my thoughts in detail with the patient. Thank you very much for the consult. SHERITA / JOSSE: [id number] /
[2021-05-07] MEDS ORDERED: PANTOPRAZOLE 40 MG TABLET PO PRN (13:11)
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
[2021-05-07] MEDS ORDERED: DOCUSATE 100 MG CAP PO PRN (15:15)
[2021-05-07] MEDS ORDERED: diphenhydrAMINE 25 MG CAP PO SCH (21:00)
[2021-05-07] MEDS ORDERED: NON FORMULARY DRUG (Rosuvastatin Calcium [Crestor] 40 MG Tablet) PO SCH (21:00)
[2021-05-07] MEDS: LORazepam 1 MG TAB PO SCH (21:14)
[2021-05-07] MEDS: MEMANTINE 10 MG TAB PO SCH (21:14)
[2021-05-07] MEDS: METOPROLOL TARTRATE 25 MG TAB PO SCH (21:14)
[2021-05-08 05:01] VITALS: TEMP 98.2
[2021-05-08] MEDS: APIXABAN 5 MG TAB PO SCH (08:41)
[2021-05-08] MEDS: METOPROLOL TARTRATE 25 MG TAB PO SCH (08:41)
[2021-05-08] MEDS: MEMANTINE 10 MG TAB PO SCH (08:41)
[2021-05-08] MEDS: LORazepam 1 MG TAB PO SCH (08:42)
[2021-05-08 10:20] VITALS: BP 127/84; PULSE 60; RESP 18
--- NOTE | 2021-05-08 10:20 | ECHOF ---
Referral Reason:A. fib with RVR, chest pain MEASUREMENTS -------- HEIGHT: 157.5 cm WEIGHT: 80.7 kg BP: 116/64 RVIDd: 3.4 cm (< 3.3) IVSd: 0.9 cm (0.6 - 1.1) LVIDd: 4.4 cm (3.9 - 5.3) LVPWd: 1.1 cm (0.6 - 1.1) IVSs: 1.5 cm LVIDs: 2.9 cm LVPWs: 1.7 cm LA Diam: 3.8 cm (2.7 - 3.8) LAESV Index (A-L): 26.51 ml/m Ao Diam: 3.0 cm (2.0 - 3.7) AV Cusp: 1.8 cm (1.5 - 2.6) MV EXCURSION: 14.230 mm (> 18.000) MV EF SLOPE: 63 mm/s (70 - 150) EPSS: 1.0 cm MV E Nato: 0.81 m/s MV DecT: 234 ms MV A Nato: 0.38 m/s MV E/A Ratio: 2.14 RAP: 5.00 mmHg RVSP: 39.42 mmHg FINDINGS -------- Sinus rhythm. This was a technically adequate study. The left ventricular size is normal. There is borderline concentric left ventricular hypertrophy. Overall left ventricular systolic function is mildly impaired with, an EF between 45 - 50 %. The right ventricle is mildly enlarged. Normal LA size by volume 22+/-6 ml/m2. The right atrium is normal in size. Interatrial and interventricular septum intact. Aortic valve is trileaflet and is mildly thickened. Mild mitral annular calcification present. Mild mitral regurgitation is present. Mild tricuspid regurgitation present. There is mild pulmonary hypertension. The right ventricular systolic pressure, as measured by Doppler, is 39.42mmHg. Trace/mild (physiologic) pulmonic regurgitation. The aortic root size is normal. Normal inferior vena cava with normal inspiratory collapse consistent with estimated right atrial pre ssure of 5 mmHg. There is no pericardial effusion. CONCLUSIONS -------- 1. The left ventricular size is normal. 2. There is borderline concentric left ventricular hypertrophy. 3. Overall left ventricular systolic function is mildly impaired with, an EF between 45 - 50 %. 4. The right ventricle is mildly enlarged. 5. Normal LA size by volume 22+/-6 ml/m2. 6. Aortic valve is trileaflet and is mildly thickened. 7. Mild mitral annular calcification present. 8. Mild mitral regurgitation is present. 9. Mild tricuspid regurgitation present. 10. There is mild pulmonary hypertension. 11. The right ventricular systolic pressure, as measured by Doppler, is 39.42mmHg. 12. Trace/mild (physiologic) pulmonic regurgitation. 13. There is no pericardial effusion. LEG BREAKER: Kathy Randhawa RDCS
--- NOTE | 2021-05-08 10:46 | P.PN ---
Subjective Patient evaluated this morning She has paroxysmal atrial fibrillation that lasts for 10-15 minutes and has episodes every 2-3 months Usually episodes are quite brief This time she came in with an episode that lasted for over 24 hours but she converted spontaneously However she started feeling her heart race and she was presyncopal. She was in A. fib with RVR She also complained of sharp discomfort in the chest for about 10-15 minutes with normal cardiac enzymes This is a new finding Now that she is in sinus rhythm, heart rate 7 the 60s and she is on low-dose metoprolol She has a history of abnormal troponins but she has nonobstructive CAD in the epicardial coronary arteries and medical treatment was advised by Dr. Mark Past medical history of nonobstructive CAD, hypertension and dyslipidemia On examination heart sounds are normal and regular Breath sounds are clear Blood pressure 160/64 mmHg Pulse rate in the 60s Afebrile 98.2F 2-D echo shows left ventricular systolic function of 45-50% Normal left atrial size Twelve-lead EKG shows atrial fibrillation with RVR 122 beats a minute I did detailed discussion the patient Has been a change in her character of atrial fibrillation She does have a mild cardio myopathy and she is on beta blockers But, heart rates in sinus rhythm are in the low 60s Suggest Avoid antiarrhythmic drugs, underlying sick sinus syndrome Continue low-dose metoprolol TSH was normal at 2.7 Suggest Elective pulmonary vein isolation recommended I would not recommend). The drugs Drugs such as sotalol or amiodarone will cause further bradycardia with its attendant risks I explained the risks of the procedure of 1% chance of cardiac puncture I would recommend cryoablation of the pulmonary veins electively in the next few months Patient will see Dr. Lees and had to have a further discussion regarding this Objective - Vital Signs Vital signs: Vital Signs Temp 98.2 F 05/08/21 08:00 Pulse 60 05/08/21 08:00 Resp 18 05/08/21 08:00 BP 127/84 05/08/21 08:00 Pulse Ox 98 05/08/21 08:00 Intake & Output 05/07/21 05/08/21 05/08/21 18:59 06:59 18:59 Intake Total 480 Balance 480 Weight 81.2 kg Intake: Oral 480 Other: Voiding Method Toilet Toilet Toilet # Voids 1 3 - Labs CBC & Chem 7: 11/20/21 18:17 05/06/21 18:17
--- NOTE | 2021-05-08 15:58 | P.DS ---
Providers Date of admission: 05/06/21 19:48 Expected date of discharge: 05/08/21 Attending physician: Latoya Chan Consults: 05/06/21 19:48 Consult Physician Urgent Consulting Provider: Rhett Lees Consult Reason/Comments: A. fib with RVR, chest Do you want consulting provider notified?: Yes [facility]: 70-year-old female one of Dr. Guajardo patient with past medical history of CAD post [place], history of hypertension hyperlipidemia who was diagnosed with Covid 19 back in June 12 2020. Patient also has proximal atrial fibrillation, follows by Dr. Lees, since 2014, patient is not on any anticoagulation for this. Heart cath was May 2020, with doing well, until yesterday, when he came in with chest pain palpitations, patient had this while resting, comfortably at home, denies any recent alcohol use, however she drinks 1 cup of cappuccino every other day, she is not on any anticoagulation for the atrial fibrillation, and has not bothered her since 2014. a heart cath in May 2020, there is moderate disease in the arm by mouth B branch of the RCA, left main normal, LAD diagonal branch 50% narrowing, circumflex 50% narrowing medical management at that time follows with Dr. Lees. In the emergency room, patient is atrial fibrillation, heart rate is 122-rate remains to be 135, and was started on IV Cardizem, magnesium of 1.9, INR 0.9, the rest of of the chemistries are okay, no TSH troponins 0.012 05/08: Patient has converted to sinus rhythm, atrial fibrillation only lasted for 10-15 minutes. has been seen by cardiology and started on Lopressor 25 mg twice daily and eliquis 5 mg twice daily. Patient has been cleared for discharge by cardiology and she is anxious to go home as her has an appointment today with Dereckmanuela. Patient will be discharged home today in stable condition. Patient to follow-up with Dr. Lees in the office. DISCHARGE DIAGNOSES 1. Paroxysmal atrial fibrillation, 2 mild coronary artery disease from heart catheterization in June 2020 3. Hyperlipidemia 4. Memory loss DISCHARGE PLAN Home Greater than 35 minutes was utilized and coordinating patient's discharge. Impression and plan of care have been directed as dictated by the signing physician. Maryellen Raya nurse practitioner acting as scribe for signing physician. Patient Condition at Discharge: Good Plan - Discharge Summary Discharge Rx Participant: No New Discharge Prescriptions: New Metoprolol Tartrate [Lopressor] 25 mg PO BID 30 Days #60 tab Apixaban [Eliquis] 5 mg PO BID 30 Days #60 tab Continue Omeprazole [PriLOSEC] 20 mg PO BID PRN PRN Reason: GERD Memantine [Namenda] 10 mg PO BID Isosorbide Mononitrate ER [Imdur] 30 mg PO DAILY LORazepam [Ativan] 2 mg PO BID Vitamin E 800 mg PO DAILY Rosuvastatin Calcium [Crestor] 40 mg PO HS diphenhydrAMINE [Benadryl] 25 mg PO HS Discontinued Aspirin EC [Ecotrin Low Dose] 81 mg PO HS #30 tablet. Metoprolol Tartrate [Lopressor] 50 mg PO DAILY Discharge Medication List Omeprazole [PriLOSEC] 20 mg PO BID PRN 04/20/14 [History] Isosorbide Mononitrate ER [Imdur] 30 mg PO DAILY 06/28/20 [History] Memantine [Namenda] 10 mg PO BID 06/28/20 [History] LORazepam [Ativan] 2 mg PO BID 07/16/20 [History] Rosuvastatin Calcium [Crestor] 40 mg PO HS 05/06/21 [History] Vitamin E 800 mg PO DAILY 05/06/21 [History] diphenhydrAMINE [Benadryl] 25 mg PO HS 05/06/21 [History] Apixaban [Eliquis] 5 mg PO BID 30 Days #60 tab 05/08/21 [Rx] Metoprolol Tartrate [Lopressor] 25 mg PO BID 30 Days #60 tab 05/08/21 [Rx] Follow up Appointment(s)/Referral(s): Rhett eLes MD [STAFF PHYSICIAN] - 2 Weeks Karlos Guajardo DO [Primary Care Provider] - 1 Week Patient Instructions/Handouts: A-fib (Atrial Fibrillation) (DC), A-fib (Atrial Fibrillation) (GEN) Discharge Disposition: HOME SELF-CARE
== END 2021-05-08 10:19 | disposition home or self-care (01) | DRG 310 ==
LOC: EC 17:50 → 3SCARD 19:48
PROVIDERS: ADMIT Family Medicine; ATTEND Family Medicine
DX: I48.0 Paroxysmal atrial fibrillation (principal); E78.00 Pure hypercholesterolemia, unspecified; E78.5 Hyperlipidemia, unspecified; F41.9 Anxiety disorder, unspecified; Z20.822 Contact with and (suspected) exposure to COVID-19; I08.1 Rheumatic disorders of both mitral and tricuspid valves; R00.2 Palpitations; I25.10 Atherosclerotic heart disease of native coronary artery without angina pectoris; I42.9 Cardiomyopathy, unspecified; K21.9 Gastro-esophageal reflux disease without esophagitis; I10 Essential (primary) hypertension; R41.3 Other amnesia; I25.2 Old myocardial infarction; Z79.01 Long term (current) use of anticoagulants; Z79.899 Other long term (current) drug therapy; Z85.828 Personal history of other malignant neoplasm of skin; Z86.16 Personal history of COVID-19; Z90.710 Acquired absence of both cervix and uterus; Z96.642 Presence of left artificial hip joint; Z98.42 Cataract extraction status, left eye; Z98.41 Cataract extraction status, right eye; Z88.5 Allergy status to narcotic agent; Z90.49 Acquired absence of other specified parts of digestive tract
CPT/HCPCS: 36415; 71045; 80053; 80061; 83735; 84443; 84484; 85025; 85610; 85730; 87635; 93005; 93306; 96365; 99291

== ENCOUNTER 2021-06-17 19:39 | Inpatient (IN) | payer BC, MEDICARE ==
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
[2021-06-17 20:19] LABS: Basophils # (A) 0.1 k/uL (0-0.2); Basophils % (A) 1 %; Eosinophils # (A) 0.1 k/uL (0-0.7); Eosinophils % (A) 1 %; HCT 46.1 % (34.0-46.0); Lymphocytes # (A) 2.9 k/uL (1.0-4.8); Lymphocytes % (A) 22 %; MCH 30.9 pg (25.0-35.0); MCHC 32.5 g/dL (31.0-37.0); MCV 95.2 fL (80.0-100.0); Monocytes # (A) 0.8 k/uL (0-1.0); Monocytes % (A) 6 %; Neutrophils # (A) 8.7 k/uL (1.3-7.7); Neutrophils % (A) 68 %; Platelet Count 350 k/uL (150-450); RBC 4.84 m/uL (3.80-5.40); RDW 11.9 % (11.5-15.5); WBC 12.9 k/uL (3.8-10.6)
--- NOTE | 2021-06-17 20:22 | XR ---
EXAMINATION TYPE: XR chest 2V DATE OF EXAM: 06/17/2021 COMPARISON: 05/06/2021 HISTORY: Dysrhythmia TECHNIQUE: 2 views FINDINGS: Heart and mediastinum are normal. Lungs are clear. Diaphragm is normal. There is old healed fracture left clavicle. Bony thorax is intact. IMPRESSION: No active cardiopulmonary disease. Normal heart. No change.
[2021-06-17 20:28] LABS: INR 0.9 (<1.2); Partial Thromboplastin Time 22.3 sec (22.0-30.0); Prothrombin Time 9.9 sec (9.0-12.0)
[2021-06-17 20:35] LABS: Sodium 138 mmol/L (137-145)
[2021-06-17 20:37] LABS: ALT 34 U/L (4-34); AST 45 U/L (14-36); African American GFR (CKD) 66 (>60 ml/min/1.73 sqM); Albumin 4.4 g/dL (3.5-5.0); Alkaline Phosphatase 165 U/L (38-126); Anion Gap 10 mmol/L; Blood Urea Nitrogen 34 mg/dL (7-17); Calcium 9.4 mg/dL (8.4-10.2); Carbon Dioxide 24 mmol/L (22-30); Chloride 104 mmol/L (98-107); Glucose 113 mg/dL (74-99); Magnesium 2.2 mg/dL (1.6-2.3); Non-African American GFR(CKD) 57 (>60 ml/min/1.73 sqM); Potassium 4.2 mmol/L (3.5-5.1); Total Bilirubin 0.5 mg/dL (0.2-1.3); Total Protein 7.4 g/dL (6.3-8.2)
[2021-06-17] MEDS ORDERED: DILTIAZEM DRIP BOLUS FROM BAG 1 MG SOLN IV ONE (20:52)
[2021-06-17] MEDS ORDERED: NALOXONE 0.4 MG/ML 1 ML VIAL IV PRN (21:30)
[2021-06-17] MEDS: DILTIAZEM 125 MG in SODIUM CHLORIDE 0.9% 100 ML IV SCH (22:42)
[2021-06-17] MEDS: SODIUM CHLORIDE 0.9% 1,000 ML IV SCH (22:49)
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
[2021-06-18] MEDS: APIXABAN 5 MG TAB PO SCH ×3 (01:23→21:42)
[2021-06-18] MEDS: METOPROLOL TARTRATE 25 MG TAB PO SCH ×2 (01:27→09:29)
[2021-06-18 06:20] LABS: Basophils # (A) 0.1 k/uL (0-0.2); Basophils % (A) 1 %; Eosinophils # (A) 0.1 k/uL (0-0.7); Eosinophils % (A) 1 %; HCT 41.2 % (34.0-46.0); HGB 13.3 gm/dL (11.4-16.0); Lymphocytes # (A) 2.5 k/uL (1.0-4.8); Lymphocytes % (A) 25 %; MCH 31.2 pg (25.0-35.0); MCHC 32.2 g/dL (31.0-37.0); Mean Platelet Volume 6.9; Monocytes # (A) 0.5 k/uL (0-1.0); Monocytes % (A) 6 %; Neutrophils # (A) 6.4 k/uL (1.3-7.7); Neutrophils % (A) 65 %; Platelet Count 279 k/uL (150-450); RBC 4.25 m/uL (3.80-5.40); RDW 12.2 % (11.5-15.5); WBC 9.8 k/uL (3.8-10.6)
[2021-06-18 06:34] LABS: African American GFR (CKD) >90 (>60 ml/min/1.73 sqM); Anion Gap 7 mmol/L; Blood Urea Nitrogen 19 mg/dL (7-17); Calcium 8.4 mg/dL (8.4-10.2); Carbon Dioxide 21 mmol/L (22-30); Chloride 112 mmol/L (98-107); Glucose 100 mg/dL (74-99); Non-African American GFR(CKD) 86 (>60 ml/min/1.73 sqM); Potassium 4.1 mmol/L (3.5-5.1); Sodium 140 mmol/L (137-145)
[2021-06-18] MEDS ORDERED: amLODIPine 2.5 MG TAB PO SCH ×2 (09:00→18:33)
[2021-06-18] MEDS: ISOSORBIDE MONONITRATE ER 30 MG TAB.ER.24H PO SCH (09:05)
[2021-06-18] MEDS: MEMANTINE 10 MG TAB PO SCH ×2 (09:05→21:45)
[2021-06-18] MEDS: PANTOPRAZOLE 40 MG TABLET PO SCH (09:05)
[2021-06-18] MEDS: LORazepam 1 MG TAB PO PRN ×2 (09:29→18:29)
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
[2021-06-18] MEDS: SODIUM CHLORIDE 0.9% 1,000 ML IV SCH (12:24)
[2021-06-18] MEDS ORDERED: IBUPROFEN 800 MG TAB PO STA (12:39)
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
[2021-06-18] MEDS ORDERED: METOPROLOL TARTRATE 25 MG TAB PO STA (12:40)
[2021-06-18] MEDS ORDERED: ACETAMINOPHEN TAB 325 MG TAB PO PRN (18:18)
[2021-06-18] MEDS ORDERED: NON FORMULARY DRUG (Rosuvastatin Calcium [Crestor] 40 MG Tablet) PO SCH (21:00)
[2021-06-18] MEDS: METOPROLOL TARTRATE 50 MG TAB PO SCH (21:43)
[2021-06-18] MEDS: DILTIAZEM 125 MG in SODIUM CHLORIDE 0.9% 100 ML IV SCH (21:43)
[2021-06-19] MEDS: PANTOPRAZOLE 40 MG TABLET PO SCH (04:11)
[2021-06-19] MEDS: SODIUM CHLORIDE 0.9% 1,000 ML IV SCH (04:11)
[2021-06-19 04:51] VITALS: RESP 18
[2021-06-19] MEDS: METOPROLOL TARTRATE 50 MG TAB PO SCH (08:13)
[2021-06-19] MEDS: ISOSORBIDE MONONITRATE ER 30 MG TAB.ER.24H PO SCH (08:13)
[2021-06-19] MEDS: APIXABAN 5 MG TAB PO SCH (08:13)
[2021-06-19] MEDS: LORazepam 1 MG TAB PO PRN (09:37)
[2021-06-19] MEDS: MEMANTINE 10 MG TAB PO SCH (09:37)
[2021-06-19 11:01] VITALS: BP 107/82; PULSE 81; TEMP 97.7
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
== END 2021-06-19 13:11 | disposition home or self-care (01) | DRG 310 ==
LOC: EC 19:39 → 3SCARD 21:30
PROVIDERS: ADMIT Internal Medicine Geriatric Medicine; ATTEND Internal Medicine Geriatric Medicine
DX: I48.0 Paroxysmal atrial fibrillation (principal); I27.20 Pulmonary hypertension, unspecified; I42.9 Cardiomyopathy, unspecified; Z20.822 Contact with and (suspected) exposure to COVID-19; E78.5 Hyperlipidemia, unspecified; I08.1 Rheumatic disorders of both mitral and tricuspid valves; I25.10 Atherosclerotic heart disease of native coronary artery without angina pectoris; K21.9 Gastro-esophageal reflux disease without esophagitis; D72.829 Elevated white blood cell count, unspecified; E73.9 Lactose intolerance, unspecified; K44.9 Diaphragmatic hernia without obstruction or gangrene; I10 Essential (primary) hypertension; F41.9 Anxiety disorder, unspecified; I25.2 Old myocardial infarction; N39.3 Stress incontinence (female) (male); R74.01 Elevation of levels of liver transaminase levels; L71.9 Rosacea, unspecified; M19.90 Unspecified osteoarthritis, unspecified site; Z79.01 Long term (current) use of anticoagulants; Z79.899 Other long term (current) drug therapy; Z85.828 Personal history of other malignant neoplasm of skin; Z87.820 Personal history of traumatic brain injury; Z90.89 Acquired absence of other organs; Z90.49 Acquired absence of other specified parts of digestive tract; Z87.19 Personal history of other diseases of the digestive system; Z90.710 Acquired absence of both cervix and uterus; Z87.42 Personal history of other diseases of the female genital tract; Z96.642 Presence of left artificial hip joint; Z98.42 Cataract extraction status, left eye; Z98.41 Cataract extraction status, right eye; Z98.890 Other specified postprocedural states; Z88.5 Allergy status to narcotic agent; Z88.8 Allergy status to other drugs, medicaments and biological substances; Z82.49 Family history of ischemic heart disease and other diseases of the circulatory system; Z80.0 Family history of malignant neoplasm of digestive organs
CPT/HCPCS: 36415; 71046; 80048; 80053; 83735; 84443; 84484; 85025; 85610; 85730; 87635; 93005; 99285

== ENCOUNTER 2021-12-18 18:35 | Inpatient (IN) | payer MEDICARE ==
[2021-12-18] MEDS ORDERED: SODIUM CHLORIDE 0.9% 1,000 ML IV STA (19:01)
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
[2021-12-18 20:14] LABS: Basophils # (A) 0.2 k/uL (0-0.2); Basophils % (A) 2 %; Eosinophils # (A) 0.1 k/uL (0-0.7); Eosinophils % (A) 2 %; HCT 41.6 % (34.0-46.0); HGB 13.6 gm/dL (11.4-16.0); Lymphocytes # (A) 2.2 k/uL (1.0-4.8); Lymphocytes % (A) 27 %; MCH 31.2 pg (25.0-35.0); MCHC 32.8 g/dL (31.0-37.0); Mean Platelet Volume 6.8; Monocytes # (A) 0.6 k/uL (0-1.0); Monocytes % (A) 8 %; Neutrophils # (A) 4.7 k/uL (1.3-7.7); Neutrophils % (A) 58 %; Platelet Count 252 k/uL (150-450); RBC 4.37 m/uL (3.80-5.40); RDW 12.5 % (11.5-15.5)
[2021-12-18 20:18] LABS: MCV 95.1 fL (80.0-100.0)
[2021-12-18 20:23] LABS: INR 1.2 (<1.2); Partial Thromboplastin Time 27.6 sec (22.0-30.0); Prothrombin Time 12.6 sec (9.0-12.0)
[2021-12-18 20:32] LABS: Albumin 3.9 g/dL (3.5-5.0); Magnesium 2.2 mg/dL (1.6-2.3); Total Bilirubin 0.2 mg/dL (0.2-1.3); Total Protein 6.4 g/dL (6.3-8.2)
--- NOTE | 2021-12-18 21:09 | XR ---
EXAMINATION TYPE: XR chest 2V DATE OF EXAM: 12/18/2021 COMPARISON: 06/17/2021 HISTORY: Dysrhythmia TECHNIQUE: 2 view FINDINGS: Heart and mediastinum are normal. Lungs are clear. Diaphragm is normal. Bony thorax is inta ct. IMPRESSION: Normal chest. No change.
[2021-12-18] MEDS ORDERED: ASPIRIN 81 MG PO STA (21:16)
[2021-12-18] MEDS ORDERED: NITROGLYCERIN SL TABS 0.4 MG TAB SUBLINGUAL PRN (21:16)
[2021-12-19] MEDS: Acetaminophen-Codeine 300-30mg TAB PO PRN ×2 (01:53→21:02)
[2021-12-19] MEDS ORDERED: MECLIZINE 25 MG TAB PO PRN (07:51)
[2021-12-19] MEDS ORDERED: AMIODARONE 360 MG in DEXTROSE 5% IN WATER 200 ML IV ONE ×2 (07:59)
[2021-12-19] MEDS ORDERED: DEXTROSE 5% IN WATER 100 ML with AMIODARONE 150 MG IV ONE (07:59)
[2021-12-19] MEDS ORDERED: ONDANSETRON 4 MG/2 ML VIAL IVP PRN (08:00)
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
[2021-12-19] MEDS: METOPROLOL TARTRATE 25 MG TAB PO SCH ×2 (08:47→21:03)
[2021-12-19] MEDS: ISOSORBIDE MONONITRATE ER 30 MG TAB.ER.24H PO SCH (08:47)
[2021-12-19] MEDS: FAMOTIDINE 20 MG TAB PO SCH (08:47)
[2021-12-19] MEDS: LORazepam 1 MG TAB PO PRN ×2 (08:53→21:03)
[2021-12-19] MEDS ORDERED: ASPIRIN 325 MG TAB PO SCH (09:00)
[2021-12-19] MEDS: MEMANTINE 10 MG TAB PO SCH ×2 (09:26→21:23)
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
[2021-12-19 09:38] LABS: LDL Cholesterol,Calculated 75.2 mg/dL (0.0-131.0)
--- NOTE | 2021-12-19 12:54 | CA ---
Transthoracic Echo Report Name: Анна Garcia Age: 71 Gender: F : 1950 Exam Date: 12/19/2021 09:45 Exam Location: [place] [facility] Ht (in): 62 Wt (lb): 167 Ordering Physician: Cary Figueroa Attending/Referring Phys: [id number], [place] Therapist Alecia Foster RDCS Procedure CPT: Indications: LV function Cardiac Hx: Technical Quality: Good Contrast 1: Total Dose (mL): Contrast 2: Total Dose (mL): MEASUREMENTS (Male / Female) Normal Values 2D ECHO LV Diastolic Diameter PLAX 4.6 cm 4.2 - 5.9 / 3.9 - 5.3 cm LV Systolic Diameter PLAX 2.9 cm IVS Diastolic Thickness 1.0 cm 0.6 - 1.0 / 0.6 - 0.9 cm LVPW Diastolic Thickness 1.1 cm 0.6 - 1.0 / 0.6 - 0.9 cm LV Relative Wall Thickness 0.5 RV Internal Dim ED PLAX 2.4 cm M-MODE Aortic Root Diameter MM 3.2 cm LA Systolic Diameter MM 3.0 cm LA Ao Ratio MM 0.9 MV E Point Septal Separation 0.7 cm AV Cusp Separation MM 1.9 cm DOPPLER AV Peak Velocity 86.2 cm/s AV Peak Gradient 3.0 mmHg MR Peak Velocity 171.8 cm/s MR Peak Gradient 11.8 mmHg TR Peak Velocity 240.7 cm/s TR Peak Gradient 23.2 mmHg Right Ventricular Systolic Press 26.9 mmHg FINDINGS Left Ventricle Mildly increased septal wall thickness. Mildly increased posterior wall thickness. Left ventricular ejection fraction is estimated at 55-60 %. Left ventricular cavity size normal. Right Ventricle The right ventricle is normal in size and function. Right Atrium The right atrium is normal in size. Left Atrium The left atrium is normal in size. Mitral Valve Structurally normal mitral valve without significant stenosis or prolapse. There is mild mitral regurgitation. Aortic Valve Structurally normal aortic valve without significant sclerosis or stenosis. There is no aortic regurgitation. Tricuspid Valve Structurally normal tricuspid valve without significant stenosis. Pulmonary artery systolic pressure is normal. Trace tricuspid regurgitation. Pulmonic Valve Structurally normal pulmonic valve without significant stenosis. There is no pulmonic regurgitation. Pericardium Normal pericardium without effusion. Aorta Normal aortic root dimension. CONCLUSIONS Normal left ventricular dimension and systolic from Previewed by: Dr. Rhett Lees MD (Electronically Signed) Final Date: 19 December 2021 12:53
[2021-12-19] MEDS ORDERED: AMIODARONE 450 MG in DEXTROSE 5% IN WATER 250 ML IV SCH ×2 (14:00)
[2021-12-19] MEDS ORDERED: RIVAROXABAN 20 MG TAB PO SCH (17:30)
[2021-12-19] MEDS ORDERED: NON FORMULARY DRUG (Rosuvastatin Calcium [Crestor] 40 MG Tablet) PO SCH (21:00)
[2021-12-20] MEDS ORDERED: ROCURONIUM 10 MG/ML (5 ML VIAL) IV ONE (07:53)
[2021-12-20] MEDS ORDERED: SUCCINYLCHOLINE CHLORIDE 100 MG/5 ML SYR IV ONE (07:53)
[2021-12-20] MEDS ORDERED: HEPARIN SODIUM,PORCINE 10,000 UNIT/ML 1 ML VIAL ONE (07:53)
[2021-12-20] MEDS ORDERED: MIDAZOLAM 2 MG/2 ML VIAL ONE (07:53)
[2021-12-20] MEDS ORDERED: NEOSTIGMINE 1 MG/ML 10 ML VIAL ONE (07:53)
[2021-12-20] MEDS ORDERED: PROPOFOL 10 MG/ML 20 ML VIAL IV ONE ×2 (07:53→10:42)
[2021-12-20] MEDS ORDERED: GLYCOPYRROLATE 0.2 MG/ML 2 ML VIAL ONE (07:53)
[2021-12-20] MEDS: FAMOTIDINE 20 MG TAB PO SCH (07:53)
[2021-12-20] MEDS: METOPROLOL TARTRATE 25 MG TAB PO SCH (07:53)
[2021-12-20] MEDS ORDERED: PROTAMINE SULFATE 10 MG/ML 5 ML VIAL IV ONE (07:53)
[2021-12-20] MEDS ORDERED: PHENYLEPHRINE-0.9% NACL SYG 1,000 MCG/10 ML SYRINGE ONE (07:53)
[2021-12-20] MEDS ORDERED: fentaNYL (PF) 50 MCG/ML 2 ML AMP ONE (07:53)
[2021-12-20] MEDS: ISOSORBIDE MONONITRATE ER 30 MG TAB.ER.24H PO SCH (07:54)
[2021-12-20] MEDS: MEMANTINE 10 MG TAB PO SCH (07:54)
[2021-12-20] MEDS: LORazepam 1 MG TAB PO PRN (07:56)
--- NOTE | 2021-12-20 08:15 | P.PN ---
Subjective Progress Note Date: 12/20/21 HISTORY OF PRESENT ILLNESS This is a 71-year-old female patient of Dr. Guajardo with past medical history of coronary artery disease, paroxysmal atrial fibrillation with had previous admissions for A. briana with RVR presenting with palpitations. She also has history of memory loss, generalized anxiety disorder, gastroesophageal reflux disease, hiatal hernia, rosacea, skin cancer, and May 2015 and in June 2020. Patient presented to the emergency center due to palpitations shortness of breath and back pain. Patient was found to be afebrile, heart rate 62, blood pressure 99/59, pulse ox 97% on room air. EKG A flutter with no acute changes. CBC was unremarkable. BUN 29 creatinine 1.26, potassium 4.0, chloride 110, blood sugar 108. INR 1.2. Blood sugar 108. Liver function tests within normal limits. Magnesium 2.2. Troponin negative 3 draws. ProBNP 3570. Lactic acid 0.7. Chest x-ray was normal. Patient was provided full-strength aspirin and 1 L of IV fluids in the emergency center, placed on the observation unit, cardiology consult, cardiac monitoring and resumed on Xarelto and Lopressor. 12/20: Patient has been afebrile, heart rate 69, blood pressure 123/79, pulse ox 95% on room air. Patient remains in atrial fibrillation rate controlled. Patient was continued on amiodarone drip but was discontinued overnight due to bradycardiat. She is scheduled for cardioversion today. No new concerns from the patient. REVIEW OF SYSTEMS Constitutional: No fever, no chills, no night sweats. No weight change. No weakness, fatigue or lethargy. No daytime sleepiness. EENT: No headache. No blurred vision or double vision, no loss of vision. No loss of Hearing, no ringing in the ears, no dizziness. No nasal drainage or congestion. No epistaxis. No sore throat. Lungs: No shortness of breath, cough, no sputum production. No wheezing. Cardiovascular: No chest pain, no lower extremity edema. No palpitations. No paroxysmal nocturnal dyspnea. No orthopnea. No lightheadedness or dizziness. No syncopal episodes. Abdominal: No abdominal pain. No nausea, vomiting. No diarrhea. No constipation. No bloody or tarry stools. No loss of appetite. Genitourinary: No dysuria, increased frequency, urgency. No urinary retention. Musculoskeletal: No myalgias. No muscle weakness, no gait dysfunction, no frequent falls. No back pain. No neck pain. Integumentary: No wounds, no lesions. No rash or pruritus. No unusual br uising. No change in hair or nails. Neurologic: No aphasia. No facial droop. No change in mentation. No head injury. No headache. No paralysis. No paresthesia. Psychiatric: No depression. No anxiety. No mood swings. Endocrine: No abnormal blood sugars. No weight change. No excessive sweating or thirst. No cold intolerance. PHYSICAL EXAMINATION Gen: This is a 71-year-old female. She is resting in bed and appears to be comfortable and in no acute distress. HEENT: Head is atraumatic, normocephalic. Pupils equal, round. Sclerae is anicteric. NECK: Supple. No JVD. No lymphadenopathy. No thyromegaly. LUNGS: Clear to auscultation. No wheezes or rhonchi. No intercostal retractions. HEART: Irregular rate and rhythm. No murmur. ABDOMEN: Soft. Bowel sounds are present. No masses. No tenderness. EXTREMITIES: No pedal edema. No calf tenderness. NEUROLOGICAL: Patient is awake, alert and oriented x3. Cranial nerves 2 through 12 are grossly intact. ASSESSMENT AND PLAN 1. Palpitations secondary to atrial fibrillation/flutter. Cardiology consult appreciated. Patient continued on Xarelto and Lopressor, off Amiodarone drip, cardioversion today. Patient verbalizes concern regarding use of amiodarone and she was unable to tolerate it in the past. 2. Paroxysmal atrial fibrillation. Continue patient on Xarelto 20 mg daily, Lopressor 75. 3. History of coronary artery disease and myocardial infarction 2. Continue Imdur 30 mg daily. 4. Memory loss. Continue Namenda 10 mg twice daily managed by Dr. Pimentel (transitioned to Dr. Polanco).. 5. Hypertension. Continue Lopressor, hold amlodipine for now. 6. Hyperlipidemia. Continue Crestor 40 mg at bedtime. 7. General anxiety disorder. Continue lorazepam 1 mg twice daily as needed. 8. Gastroesophageal reflux disease. Pepcid 20 mg daily. DISCHARGE PLAN Return home. Impression and plan of care have been directed as dictated by the signing physician. Maryellen Raya nurse practitioner acting as scribe for signing physician. Objective - Vital Signs Vital signs: Vital Signs Temp 97.4 F L 12/20/21 07:18 Pulse 69 12/20/21 07:18 Resp 18 12/20/21 07:18 BP 123/79 12/20/21 07:18 Pulse Ox 95 12/20/21 07:18 FiO2 Intake & Output 12/19/21 12/20/21 12/20/21 18:59 06:59 18:59 Intake Total 720 Balance 720 Intake: Oral 720 Other: Voiding Method Toilet # Voids 1 2 - Labs CBC & Chem 7: 12/18/21 20:07 12/18/21 20:07
[2021-12-20] MEDS ORDERED: SODIUM CHLORIDE 0.9% 1,000 ML IV SCH (08:30)
[2021-12-20] MEDS ORDERED: AMIODARONE 200 MG TAB PO SCH (09:00)
--- NOTE | 2021-12-20 09:19 | P.PN ---
Subjective Progress Note Date: 12/20/21 HISTORY OF PRESENT ILLNESS: This is a 71-year-old female with a past medical history significant for atrial fibrillation, atrial flutter, hypertension, hyperlipidemia, and intermediate triple vessel coronary artery disease. Patient follows in the office with Dr. Lees. We have been asked to see the patient in consultation for palpitations. Patient examined at the bedside. Patient presented to the hospital for chief complaint of palpitations. She reports she has been feeling these intermittently over the past couple days. She denies having any chest pain or pressure. She denies shortness of breath. She does report having some back pain the past couple days which she stated was unusual for her. EKG on admission revealed atrial flutter with controlled ventricular rate. It is noted that the patient saw her ambulance paramedic in office on 11/28/2021. The patient was started on oral amiodarone at that time. The patient states that the medication made her nauseous and she stopped taking it. * EKG reveals atrial flutter with controlled ventricular rate * Chest xray normal chest. No change. * Laboratory data: WBC 8.0. Hemoglobin 13.6. Platelet count 252. Sodium 137. Potassium 4.0. BUN 29. Creatinine 1.26. Magnesium 2.2. Troponin negative 3. * Current home cardiac medications include Xarelto 20 mg with dinner, metoprolol tartrate 75 mg twice a day, Norvasc 2.5 mg daily, Crestor 40 mg at night, Imdur 30 mg daily * Most recent echocardiogram obtained in April 2021 revealed ejection fraction 45-50%, mild MR, mild TR, mild pulmonary hypertension * Cardiac catheterization history: July 2020 revealed intermediate triple vessel coronary artery disease with normal LVEDP. Medical management was recommended. 12/20/2021 Patient examined this morning at the bedside. Patient denies chest pain or pressure. She denies shortness of breath. She remains in atrial flutter with controlled ventricular rates. She did not have any side effects with the amio drip. However, she did have some bradycardia this morning and it was discontinued. Echocardiogram completed this morning reveals ejection fraction 55-60%, mild MR, trace TR PHYSICAL EXAM: VITAL SIGNS: Reviewed. GENERAL: Well-developed in no acute distress. HEENT: Head is normocephalic. Pupils are equal, round. Sclerae anicteric. Mucous membranes of the mouth are moist. Neck supple. No JVD or thyromegaly LUNGS: Respirations even and unlabored. Lungs essentially clear to auscultation bilaterally. HEART: Irregular rate and rhythm. S1 and S2 heard. Systolic murmur noted ABDOMEN: Soft. Nondistended. Nontender. EXTREMITIES: Normal range of motion. No clubbing or cyanosis. Peripheral pulses intact. No lower extremity edema NEUROLOGIC: Awake and alert. Oriented x 3. ASSESSMENT: Palpitations Persistent atrial fibrillation/typical atrial flutter Hypertension Hyperlipidemia Intermediate triple vessel coronary artery disease PLAN: Continue current cardiac medications Begin oral amiodarone 200 mg twice a day Patient to undergo cardioversion today with Dr. Lees Further recommendations pending patient's course Nurse practitioner note has been reviewed by physician. Signing provider agrees with the documented findings, assessment, and plan of care. Objective - Vital Signs Vital signs: Vital Signs Temp 97.4 F L 12/20/21 07:18 Pulse 69 12/20/21 07:18 Resp 18 12/20/21 07:18 BP 123/79 12/20/21 07:18 Pulse Ox 95 12/20/21 07:18 FiO2 Intake & Output 12/19/21 12/20/21 12/20/21 18:59 06:59 18:59 Intake Total 720 Balance 720 Intake: Oral 720 Other: Voiding Method Toilet Toilet # Voids 1 2 1 - Labs CBC & Chem 7: 12/18/21 20:07 12/18/21 20:07
[2021-12-20] MEDS ORDERED: SODIUM CHLORIDE 0.9% 1,000 ML IV ONE (10:08)
--- NOTE | 2021-12-20 11:22 | P.PCN ---
Date of Procedure: 12/20/21 Operative Findings: Cardioversion Report Performing physician Rhett Lees M.D. Procedure performed Successful cardioversion of atrial fibrillation to normal sinus mechanism using 200 J at first attempt Indication Symptomatic atrial fibrillation Complication None Level of sedation The procedure was performed under deep sedation using propofol with FOUR SLIDE OPERATOR in the room Procedure description After obtaining an informed consent the patient was brought to the recovery room. Sedation was introduced using propofol with FOUR SLIDE OPERATOR in the room. Subsequently the patient cardioverted from atrial fibrillation to normal sinus mechanism using 200 J and first attempt Conclusion Successful cardioversion of atrial fibrillation to normal sinus mechanism using 200 J Postprocedure management Continue the current medical regimen Continue oral anticoagulation Follow-up with the patient
[2021-12-20 11:24] VITALS: BP 98/58
--- NOTE | 2021-12-20 13:01 | P.DS ---
Providers Date of admission: 12/19/21 08:21 Expected date of discharge: 12/20/21 Attending physician: Latoya Chan Consults: 12/18/21 21:16 Consult Physician Urgent Consulting Provider: Rhett Lees Consult Reason/Comments: palpitations Do you want consulting provider notified?: Yes Primary care physician: Karlos Kenmore Hospital Course: HISTORY OF PRESENT ILLNESS This is a 71-year-old female patient of Dr. Guajardo with past medical history of coronary artery disease, paroxysmal atrial fibrillation with had previous admissions for A. fib with RVR presenting with palpitations. She also has history of memory loss, generalized anxiety disorder, gastroesophageal reflux disease, hiatal hernia, rosacea, skin cancer, and May 2015 and in 2020. Patient presented to the emergency center due to palpitations shortness of breath and back pain. Patient was found to be afebrile, heart rate 62, blood pressure 99/59, pulse ox 97% on room air. EKG A flutter with no acute changes. CBC was unremarkable. BUN 29 creatinine 1.26, potassium 4.0, chloride 110, blood sugar 108. INR 1.2. Blood sugar 108. Liver function tests within normal limits. Magnesium 2.2. Troponin negative 3 draws. ProBNP 3570. Lactic acid 0.7. Chest x-ray was normal. Patient was provided full-strength aspirin and 1 L of IV fluids in the emergency center, placed on the observation unit, cardiology consult, cardiac monitoring and resumed on Xarelto and Lopressor. 12/20: Patient has been afebrile, heart rate 69, blood pressure 123/79, pulse ox 95% on room air. Patient remains in atrial fibrillation rate controlled. Patient was continued on amiodarone drip but was discontinued overnight due to bradycardiat. She is scheduled for cardioversion today. No new concerns from the patient. Patient underwent successful cardioversion of atrial fibrillation to normal sinus rhythm by Dr. Lees. We will plan to discharge patient home today if cleared by cardiology. Cardiology will address amiodarone dosing. DISCHARGE DIAGNOSES 1. Palpitations secondary to atrial fibrillation/flutter. 2. Paroxysmal atrial fibrillation. 3. History of coronary artery disease and myocardial infarction 2. 4. Memory loss. 5. Hypertension. 6. Hyperlipidemia. 7. General anxiety disorder. 8. Gastroesophageal reflux disease. DISCHARGE PLAN Return home. Greater than 35 minutes was utilized and coordinating patient's discharge. Impression and plan of care have been directed as dictated by the signing physician. Maryellen Raya nurse practitioner acting as scribe for signing physician. Patient Condition at Discharge: Fair Plan - Discharge Summary New Discharge Prescriptions: New Amiodarone [Cordarone] 200 mg PO BID #180 tab Continue Memantine [Namenda] 10 mg PO BID Isosorbide Mononitrate ER [Imdur] 30 mg PO DAILY Vitamin E 800 unit PO DAILY Rosuvastatin Calcium [Crestor] 40 mg PO HS Metoprolol Tartrate [Lopressor] 75 mg PO BID Meclizine HCl [Antivert] 25 mg PO TID PRN PRN Reason: Vertigo Multivitamins, Thera [Multivitamin (formulary)] 1 tab PO DAILY LORazepam [Ativan] 1 mg PO BID PRN PRN Reason: Anxiety Ibuprofen [Motrin] 800 mg PO TID PRN PRN Reason: Pain Rivaroxaban [Xarelto] 20 mg PO W/SUPPER Discontinued amLODIPine [Norvasc] 2.5 mg PO DAILY Discharge Medication List Isosorbide Mononitrate ER [Imdur] 30 mg PO DAILY 06/28/20 [History] Memantine [Namenda] 10 mg PO BID 06/28/20 [History] Rosuvastatin Calcium [Crestor] 40 mg PO HS 05/06/21 [History] Vitamin E 800 unit PO DAILY 05/06/21 [History] Ibuprofen [Motrin] 800 mg PO TID PRN 12/18/21 [History] LORazepam [Ativan] 1 mg PO BID PRN 12/18/21 [History] Meclizine HCl [Antivert] 25 mg PO TID PRN 12/18/21 [History] Metoprolol Tartrate [Lopressor] 75 mg PO BID 12/18/21 [History] Multivitamins, Thera [Multivitamin (formulary)] 1 tab PO DAILY 12/18/21 [History] Rivaroxaban [Xarelto] 20 mg PO W/SUPPER 12/18/21 [History] Amiodarone [Cordarone] 200 mg PO BID #180 tab 12/20/21 [Rx] Follow up Appointment(s)/Referral(s): Karlos Guajardo DO [Primary Care Provider] - 1 Week Rhett Lees MD [STAFF PHYSICIAN] - 1 Week Discharge Disposition: HOME SELF-CARE
[2021-12-20 13:34] VITALS: PULSE 60; RESP 18; TEMP 97.2
[2021-12-20] MEDS: Acetaminophen-Codeine 300-30mg TAB PO PRN (14:58)
== END 2021-12-20 16:00 | disposition home or self-care (01) | DRG 310 ==
LOC: EC 18:35 → 6NMEDSUR 21:16 → OBSVTOIN 12-19 08:21
PROVIDERS: ADMIT Family Medicine; ATTEND Family Medicine
PROC: 5A2204Z Restoration of Cardiac Rhythm, Single (ICD-10-PCS; principal; 2021-12-20 09:00)
DX: I48.19 Other persistent atrial fibrillation (principal); I48.3 Typical atrial flutter; I48.0 Paroxysmal atrial fibrillation; I10 Essential (primary) hypertension; I25.10 Atherosclerotic heart disease of native coronary artery without angina pectoris; R00.2 Palpitations; I27.20 Pulmonary hypertension, unspecified; I08.1 Rheumatic disorders of both mitral and tricuspid valves; E78.5 Hyperlipidemia, unspecified; F41.1 Generalized anxiety disorder; M19.90 Unspecified osteoarthritis, unspecified site; K21.9 Gastro-esophageal reflux disease without esophagitis; K44.9 Diaphragmatic hernia without obstruction or gangrene; R41.3 Other amnesia; N39.3 Stress incontinence (female) (male); E66.9 Obesity, unspecified; Z68.30 Body mass index [BMI] 30.0-30.9, adult; L71.9 Rosacea, unspecified; R00.1 Bradycardia, unspecified; T46.2X5A Adverse effect of other antidysrhythmic drugs, initial encounter; Z96.642 Presence of left artificial hip joint; Z85.828 Personal history of other malignant neoplasm of skin; I25.2 Old myocardial infarction; Z79.899 Other long term (current) drug therapy; Z79.01 Long term (current) use of anticoagulants; Z88.8 Allergy status to other drugs, medicaments and biological substances; Z88.6 Allergy status to analgesic agent; Z98.890 Other specified postprocedural states; Z80.0 Family history of malignant neoplasm of digestive organs; Z82.49 Family history of ischemic heart disease and other diseases of the circulatory system; Z82.41 Family history of sudden cardiac death
CPT/HCPCS: 36415; 71046; 80053; 80061; 83605; 83735; 83880; 84484; 85025; 85610; 85730; 92960; 93005; 93306

== ENCOUNTER 2022-02-09 09:15 | Day surgery (SDC) | payer MEDICARE ==
[2022-02-06 15:50] VITALS: BMI 32.0
[~2022-02-09 09:15] MED LIST: LACTATED RINGERS 1,000 ML IV SCH; LIDOCAINE 1% (10MG/ML) FOR IV START INTRADERMA PRN
[2022-02-09 09:42] VITALS: TEMP 97.4
[2022-02-09] MEDS ORDERED: LIDOCAINE 2% INJ 20 MG/ML (2 ML VIAL) ONE (10:57)
[2022-02-09] MEDS ORDERED: PROPOFOL 10 MG/ML 20 ML VIAL IV ONE (10:57)
--- NOTE | 2022-02-09 11:09 | P.PCN ---
Date of Procedure: 02/09/22 Procedure(s) Performed: BRIEF HISTORY: Patient is a 72-year-old, pleasant, white female scheduled for an upper endoscopy as a part of evaluation of long-standing history of GERD with worsening symptoms despite being on Prilosec 20 mg daily.. PROCEDURE PERFORMED: Esophagogastroduodenoscopy with biopsy. PREOPERATIVE DIAGNOSIS: Long-standing history of GERD with worsening symptoms lately. IV sedation per anesthesia. PROCEDURE: After informed consent was obtained, the patient was brought into the endoscopy unit. IV sedation was administered by Anesthesia under continuous monitoring. Initially the Olympus GIF-140 video endoscope was inserted into the mouth. Esophagus intubated without any difficulty. It was gradually advanced into the stomach and duodenum and carefully examined. The bulb and the second part of the duodenum appeared normal. The scope at this time was withdrawn to the stomach, adequately insufflated with air, and upon careful examination, mucosa of the antrum, scattered erosions and biopsies were done from this area. The body, cardia and the fundus appeared normal. Multiple small gastric polyps noted in the body the stomach which was biopsied. The scope was then withdrawn into the esophagus. The GE junction was located at 39 cm from the incisors. The esophagus appeared normal. There were no erosions or ulcerations seen and the patient tolerated the procedure well. IMPRESSION: 1. Antral erosive gastritis. 2. Multiple small gastric polyps. RECOMMENDATIONS: The findings of this examination were discussed with the patient as well as her family. She was advised to follow with the biopsy results. She can continue with omeprazole 20 mg twice daily and follow antireflux measures and use Pepcid at bedtime as needed.
[2022-02-09 11:37] VITALS: BP 120/77; PULSE 54; RESP 15
== END 2022-02-09 11:52 | disposition home or self-care (01) ==
LOC: ORWHC2ENDO 09:15
PROVIDERS: ATTEND Internal Medicine Gastroenterology
DX: K29.50 Unspecified chronic gastritis without bleeding (principal); K31.7 Polyp of stomach and duodenum; K21.9 Gastro-esophageal reflux disease without esophagitis; I25.10 Atherosclerotic heart disease of native coronary artery without angina pectoris; I48.91 Unspecified atrial fibrillation; I10 Essential (primary) hypertension; I25.2 Old myocardial infarction; Z79.899 Other long term (current) drug therapy; Z88.5 Allergy status to narcotic agent; Z88.8 Allergy status to other drugs, medicaments and biological substances; Z79.01 Long term (current) use of anticoagulants; Z80.8 Family history of malignant neoplasm of other organs or systems; Z82.49 Family history of ischemic heart disease and other diseases of the circulatory system
CPT/HCPCS: 88305; 43239; J2704; J2001

== ENCOUNTER 2022-04-01 08:58 | Observation (INO) | payer MEDICARE, BC ==
[2022-04-01] MEDS ORDERED: ASPIRIN 81 MG PO STA (09:19)
[2022-04-01] MEDS ORDERED: NITROGLYCERIN SL TABS 0.4 MG TAB SUBLINGUAL STA ×3 (09:19)
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
[2022-04-01 09:37] LABS: Basophils % (A) 1 %; Eosinophils # (A) 0.2 k/uL (0-0.7); Eosinophils % (A) 3 %; HCT 43.5 % (34.0-46.0); HGB 14.2 gm/dL (11.4-16.0); Lymphocytes # (A) 1.6 k/uL (1.0-4.8); Lymphocytes % (A) 30 %; MCH 31.6 pg (25.0-35.0); MCHC 32.7 g/dL (31.0-37.0); MCV 96.7 fL (80.0-100.0); Mean Platelet Volume 8.1; Monocytes # (A) 0.3 k/uL (0-1.0); Monocytes % (A) 5 %; Neutrophils % (A) 57 %; Platelet Count 197 k/uL (150-450); RDW 13.5 % (11.5-15.5); WBC 5.2 k/uL (3.8-10.6)
[2022-04-01 09:50] LABS: Partial Thromboplastin Time 27.7 sec (22.0-30.0); Prothrombin Time 11.2 sec (9.0-12.0)
--- NOTE | 2022-04-01 09:53 | XR ---
EXAMINATION TYPE: XR chest 2V DATE OF EXAM: 04/01/2022 COMPARISON: Chest x-ray dated 12/18/2021 HISTORY: Chest pain TECHNIQUE: Frontal and lateral views of the chest are obtained. FINDINGS: There is no focal air space opacity, pleural effusion, or pneumothorax seen. The cardiac silhouette size is within normal limits. There is increased AP diameter of the chest, correlate for u nderlying COPD. Thoracic spondylosis is present. There are overlying leads. The aorta is dense. The osseous structures are intact. IMPRESSION: No acute cardiopulmonary process.
[2022-04-01 10:04] LABS: Calcium 8.9 mg/dL (8.4-10.2); Magnesium 2.2 mg/dL (1.6-2.3); Total Bilirubin 0.4 mg/dL (0.2-1.3); Total Protein 6.3 g/dL (6.3-8.2)
[2022-04-01] MEDS ORDERED: NITROGLYCERIN SL TABS 0.4 MG TAB SUBLINGUAL PRN (10:31)
[2022-04-01] MEDS: NITROGLYCERIN OINT 1 INCH/GM PACKET TOPICAL SCH ×3 (12:06→23:13)
[2022-04-01] MEDS ORDERED: LORazepam 1 MG TAB PO PRN (16:56)
[2022-04-01] MEDS: ACETAMINOPHEN TAB 325 MG TAB PO PRN (17:27)
[2022-04-01] MEDS ORDERED: RIVAROXABAN 20 MG TAB PO SCH (17:30)
[2022-04-01] MEDS: MEMANTINE 10 MG TAB PO SCH (20:24)
[2022-04-01] MEDS ORDERED: METOPROLOL TARTRATE 25 MG TAB PO SCH (21:00)
[2022-04-01] MEDS ORDERED: NON FORMULARY DRUG (Rosuvastatin Calcium [Crestor] 40 MG Tablet) PO SCH (21:00)
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
[2022-04-02] MEDS: NITROGLYCERIN OINT 1 INCH/GM PACKET TOPICAL SCH ×2 (04:57→12:09)
[2022-04-02] MEDS ORDERED: PANTOPRAZOLE 40 MG TABLET PO SCH (07:30)
[2022-04-02 08:58] VITALS: BP 122/76; PULSE 50; RESP 18; TEMP 97.8
[2022-04-02] MEDS ORDERED: ASPIRIN 325 MG TAB PO SCH (09:00)
[2022-04-02] MEDS ORDERED: METOPROLOL TARTRATE 25 MG TAB PO SCH (09:00)
[2022-04-02] MEDS ORDERED: ISOSORBIDE MONONITRATE ER 30 MG TAB.ER.24H PO SCH (09:00)
[2022-04-02] MEDS ORDERED: amLODIPine 2.5 MG TAB PO SCH (09:00)
[2022-04-02] MEDS ORDERED: AMIODARONE 100 MG TAB PO SCH (09:00)
[2022-04-02] MEDS: MEMANTINE 10 MG TAB PO SCH (09:51)
[2022-04-02] MEDS: ACETAMINOPHEN TAB 325 MG TAB PO PRN (10:11)
[2022-04-02 12:00] LABS: African American GFR (CKD) 51.9 (60.0-200.0); BUN/Creat Ratio 12.67 Ratio (12.00-20.00); Blood Urea Nitrogen 15.2 mg/dL (9.0-27.0); Calcium 9.5 mg/dL (8.7-10.3); Carbon Dioxide 24.2 mmol/L (20.0-27.5); Chloride 107 mmol/L (96-109); Chol/HDL Ratio 2.23 Ratio; Glucose 89 mg/dL (70-110); LDL Cholesterol,Calculated 81.9 mg/dL (0.0-131.0); Non-African American GFR(CKD) 44.8 (60.0-200.0); Potassium 4.2 mmol/L (3.5-5.5); Sodium 141 mmol/L (135-145)
--- NOTE | 2022-04-02 21:31 | CONS ---
CONSULTATION HISTORY OF PRESENT ILLNESS: Анна Garcia is a 72-year-old lady who sees Dr. Lees in the outpatient setting. She has persistent atrial fibrillation. In December of this year, she underwent electrical cardioversion, which was successful and she now maintains sinus rhythm. She came into the hospital complaining of a right posterior shoulder discomfort with radiation to the lateral aspect of the right chest. This lady had been seen by Dr. Lees recently in February. At the time of my evaluation, she is comfortable, resting and indicates to me the pain has gone, but again this morning it seems to have come back to a mild extent. In June 2020, she underwent a cardiac cath from right radial approach by Dr. Lees, which revealed that there was a 50% lesion in the smaller PLV branch of RCA, which was a dominant vessel. Circumflex also had about a 50% lesion in a nondominant circumflex. She is asymptomatic at the time of my evaluation. PAST MEDICAL HISTORY: 1. Hypertension. 2. Persistent atrial fibrillation status post cardioversion in December maintaining sinus rhythm. 3. Hypercholesterolemia. 4. No evidence of any prior myocardial infarction. 5. Moderate noncritical CAD based on a cardiac cath in June 2020. MEDICATIONS: At home include: 1. Rivaroxaban 20 mg daily. 2. Crestor 40 mg daily. 3. Metoprolol tartrate 75 mg b.i.d. 4. Amiodarone 100 mg daily. 5. Amlodipine 2.5 mg daily. PHYSICAL EXAMINATION: VITAL SIGNS: On examination, blood pressure is 120/70, pulse rate is 50 per minute. HEENT: Unremarkable. Fundus was not examined by me. NECK: Supple. No JVD. I do not hear a carotid bruit. HEART: Exam reveals S1, S2. Rhythm is regular. No significant murmurs. LUNGS: Clear. ABDOMEN: Soft, nontender. LOWER EXTREMITIES: Reveal diminished pulses. CENTRAL NERVOUS SYSTEM: Grossly within normal limits. DIAGNOSTIC DATA: EKG revealed sinus bradycardia with nonspecific ST changes. LABORATORY DATA: Revealed unremarkable troponins. IMPRESSION: 1. Atypical musculoskeletal chest pain. 2. Non-critical coronary artery disease by catheterization. 3. Persistent atrial fibrillation status post electrical cardioversion, now sinus bradycardia. 4. Hypertension. 5. Hyperlipidemia. RECOMMENDATIONS: I am suggesting decrease the metoprolol tartrate to 25 mg b.i.d., increase activity and if she has no further symptoms she can be discharged. She can try a small dose of nonsteroidal anti-inflammatory agents or Tylenol for a short course of 3 to 4 days and if her shoulder pain persist to see her PCP. She can be discharged today. Thank you very much for the consult. SHERITA / JOSSE: [id number] /
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
== END 2022-04-02 13:48 | disposition home or self-care (01) ==
LOC: EC 08:58 → 6NMEDSUR 10:31
PROVIDERS: ADMIT Internal Medicine; ATTEND Internal Medicine
DX: R07.89 Other chest pain (principal); I25.10 Atherosclerotic heart disease of native coronary artery without angina pectoris; R00.1 Bradycardia, unspecified; I48.19 Other persistent atrial fibrillation; I44.0 Atrioventricular block, first degree; I10 Essential (primary) hypertension; I25.2 Old myocardial infarction; E78.00 Pure hypercholesterolemia, unspecified; M25.511 Pain in right shoulder; R11.0 Nausea; M54.2 Cervicalgia; R68.84 Jaw pain; M19.90 Unspecified osteoarthritis, unspecified site; K21.9 Gastro-esophageal reflux disease without esophagitis; N39.3 Stress incontinence (female) (male); L71.9 Rosacea, unspecified; E73.9 Lactose intolerance, unspecified; K44.9 Diaphragmatic hernia without obstruction or gangrene; F41.9 Anxiety disorder, unspecified; E66.9 Obesity, unspecified; Z68.32 Body mass index [BMI] 32.0-32.9, adult; Z79.01 Long term (current) use of anticoagulants; Z79.899 Other long term (current) drug therapy; Z88.5 Allergy status to narcotic agent; Z88.8 Allergy status to other drugs, medicaments and biological substances; Z85.828 Personal history of other malignant neoplasm of skin; Z90.710 Acquired absence of both cervix and uterus; Z90.49 Acquired absence of other specified parts of digestive tract; Z96.642 Presence of left artificial hip joint; Z98.42 Cataract extraction status, left eye; Z98.41 Cataract extraction status, right eye; Z98.890 Other specified postprocedural states; Z87.828 Personal history of other (healed) physical injury and trauma; Z80.0 Family history of malignant neoplasm of digestive organs; Z82.49 Family history of ischemic heart disease and other diseases of the circulatory system
CPT/HCPCS: 99285; 36415; 94760; 93005; 85379; 80061; 80053; 80048; 82150; 83690; 83735; 84484; 85025; 85610; 85730; 71046; G0378 ×2

== ENCOUNTER 2022-06-01 10:05 | Day surgery (SDC) | payer MEDICARE, BC ==
[2022-06-01 07:28] VITALS: RESP 16; TEMP 98
[~2022-06-01 10:05] MED LIST changes: +ALPRAZolam 0.25 MG TAB PO PRN; +ALPRAZolam 0.5 MG TAB PO PRN; +ASPIRIN 325 MG TAB PO STA; -LACTATED RINGERS 1,000 ML IV SCH; -LIDOCAINE 1% (10MG/ML) FOR IV START INTRADERMA PRN; +NITROGLYCERIN SL TABS 0.4 MG TAB SUBLINGUAL PRN; +SODIUM CHLORIDE 0.9% 500 ML 500 ML IV ONE
[2022-06-01] MEDS ORDERED: SODIUM CHLORIDE 0.9% 1,000 ML IV ONE (10:10)
[2022-06-01] MEDS ORDERED: ASPIRIN 325 MG TAB ONE (10:32)
[2022-06-01] MEDS: SODIUM CHLORIDE 0.9% 1,000 ML in EMPTY BAG 1 BAG IV SCH ×3 (10:33→10:35)
[2022-06-01] MEDS ORDERED: VERAPAMIL 2.5 MG/ML 2 ML AMP ONE (12:05)
[2022-06-01] MEDS ORDERED: MIDAZOLAM 2 MG/2 ML VIAL IV ONE ×2 (12:52→13:20)
[2022-06-01] MEDS ORDERED: LIDOCAINE 1% INJ 10MG/ML (5 ML VIAL-PF) SQ ONE (12:53)
[2022-06-01] MEDS ORDERED: VERAPAMIL SYRINGE (5 MG/10 ML) INTRAARTER ONE (12:54)
[2022-06-01] MEDS ORDERED: HYDROmorphone 1 MG/ML 1 ML SYRINGE ONE (12:55)
[2022-06-01] MEDS ORDERED: HEPARIN SODIUM 1,000 UN/ML (10ML VL) IV ONE ×2 (12:57→13:09)
[2022-06-01] MEDS ORDERED: HYDROmorphone 1 MG/ML 1 ML SYRINGE IVP ONE (12:57)
[2022-06-01] MEDS ORDERED: fentaNYL (PF) 50 MCG/ML 2 ML AMP ONE (13:07)
[2022-06-01] MEDS ORDERED: HEPARIN SODIUM 1,000 UN/ML (10ML VL) ONE (13:07)
[2022-06-01] MEDS ORDERED: fentaNYL (PF) 50 MCG/ML 2 ML AMP IV ONE (13:09)
[2022-06-01] MEDS ORDERED: IOPAMIDOL-370 125ML BTL INJ ONE (13:28)
[2022-06-01] MEDS ORDERED: CLOPIDOGREL 75 MG TAB ONE (13:35)
[2022-06-01] MEDS ORDERED: CLOPIDOGREL 75 MG TAB PO ONE (13:45)
[2022-06-01] MEDS ORDERED: SODIUM CHLORIDE 0.9% 1,000 ML IV SCH (14:00)
[2022-06-01] MEDS ORDERED: ACETAMINOPHEN TAB 500 MG TAB PO STA (14:00)
[2022-06-01] MEDS ORDERED: RX INFO: IV CONTRAST WAS GIVEN 1 EACH MISC MISCELLANE PRN (14:13)
[2022-06-01 16:48] VITALS: BP 122/76; PULSE 57
--- NOTE | 2022-06-02 07:22 | P.PCN ---
Date of Procedure: 06/01/22 Operative Findings: Percutaneous coronary intervention Performing physician Rhett Lees MD Procedure performed 1 Selective right and left coronary angiogram 2. Left heart catheterization 3. Successful stenting of the proximal LCx using 3.0 x 15 mm Xience SADA with an excellent angiographic results and with adjunctive use of an intravascular ultrasound 4. Selective right common femoral artery angiogram Indication This is a 72-year-old female patient with hypertension and dyslipidemia who was experiencing symptoms of chest discomfort. She underwent myocardial perfusion imaging stress test at that showed inferolateral ischemia at moderate size and moderate intensity. Approach Right radial artery Right common femoral artery Complication None Level of sedation Moderate with sufficient length of 32 minutes Procedure description After obtaining an informed consent the patient was brought to the cardiac open hearth laborer. The right radial artery was cannulated using micropuncture technique, the micropuncture wire passed easily then I placed a 6 [place] sheath. I gave the patient 2 mg of verapamil intra-arterial and 5000 units of heparin intravenous. Selective right and left coronary angiogram performed using JR4 and JL 3 catheters. Left heart catheterization was performed using 6 [place] pigtail catheter. After that it did intervene on the left circumflex. The procedure was completed without any complication Selective coronary angiogram The RCA: Large caliber vessel and a dominant vessel. The RCA has mild disease only. Distally bifurcates into PD and PLV branches what appeared to be angiographically normal Left main: Large caliber vessel and appeared to be angiographically normal The LCx: Large caliber vessel nondominant vessel. The proximal LCx appears to have severe lesion in the range of 70% the lesion is hazy as well. The LAD: Appeared to have mild disease only Hemodynamics The LVEDP appeared to be at 8 mm marker was no significant gradient across aortic valve PCI of the LCx Anticoagulation was initiated using heparin with continuous ACT monitoring. Subsequently I tried to engage the left main from right radial approach but I had some difficulties so I have to access site common femoral artery and core from the right groin. With that I was able to engage the left main using JL 3 guide. I did wear the LCx using run through wire. Subsequently I did intravascular ultrasound to assess the haziness in the left circumflex at that revealed eccentric calcification. I did balloon angioplasty using 2 5 x 12 mm balloon before I deployed a 3.0 x 15 mm stent where the stent was positioned under fluoroscopy guidance and deployed and there is nominal pressure. Postdilatation was performed using 3.25 mm balloon. Final angiogram showed excellent angiographic results and the procedure was completed with no complication Conclusion 1. Severe disease involving the proximal LCx. I performed successful stenting 2. Normal left-sided filling pressure
== END 2022-06-01 16:57 | disposition home or self-care (01) ==
LOC: CATHCVL 10:05
PROVIDERS: ATTEND Internal Medicine Interventional Cardiology
DX: I25.10 Atherosclerotic heart disease of native coronary artery without angina pectoris (principal); I10 Essential (primary) hypertension; E78.5 Hyperlipidemia, unspecified; I48.0 Paroxysmal atrial fibrillation; Z82.49 Family history of ischemic heart disease and other diseases of the circulatory system; I38 Endocarditis, valve unspecified; Z79.899 Other long term (current) drug therapy
CPT/HCPCS: 92978; 93458; C9600

== ENCOUNTER → 2022-12-14 | Outpatient (CLI) | payer MEDICARE, BC ==
--- NOTE | 2022-12-14 18:06 | CT ---
EXAMINATION TYPE: CT hip LT wo con DATE OF EXAM: 12/14/2022 COMPARISON: 04/27/2016 HISTORY: left hip pain CT DLP: 740 mGycm Automated exposure control for dose reduction was used. Contrast: None Technique: Axial images 3 mm thick sections. Reconstructed images in coronal and sagittal plane. FINDINGS: There is a left hip prosthesis with acetabular component. Femoral portion within the diaphysis of the femur appears intact. No acute fractures are identified. No suspicious lucency to suggest loosening is evident. Acetabular component appears to articulate with the acetabulum. Another is some limitatio n to the level of the femoral head due to the significant beam hardening artifact. Significant change from the prior exam however is not evident. Muscular density appears normal. Subcutaneous regions appear normal. IMPRESSION: 1. NO SUSPICIOUS ACUTE OSSEOUS ABNORMALITY LEFT HIP. 2. LEFT HIP PROSTHESIS REMAINS IN POSITION. NO OBVIOUS LOOSENING EVIDENT.
== END | disposition home or self-care (01) ==
LOC: RADCTMAIN 12:50
PROVIDERS: ATTEND Orthopaedic Surgery
DX: S70.02XD Contusion of left hip, subsequent encounter (principal); Z96.642 Presence of left artificial hip joint

== ENCOUNTER → 2023-05-02 | Outpatient (CLI) | payer MEDICARE, BC ==
--- NOTE | 2023-05-02 13:08 | XR ---
EXAMINATION TYPE: XR ribs LT DATE OF EXAM: 05/02/2023 COMPARISON: NONE HISTORY: Pain TECHNIQUE: 5 views of the left ribs submitted FINDINGS: Remote fracture involving the left clavicle. Deformity of the lateral margin left fourth ri b appears chronic. No definite acute displaced rib fracture. IMPRESSION: No definite acute displaced rib fracture.
== END | disposition home or self-care (01) ==
LOC: RADXRMAIN 12:18
PROVIDERS: ATTEND Family Medicine
DX: R07.81 Pleurodynia (principal)

== ENCOUNTER → 2023-05-20 | Outpatient (CLI) | payer MEDICARE, BC ==
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
== END | disposition home or self-care (01) ==
LOC: RADUSWWP 07:46
PROVIDERS: ATTEND Family Medicine
DX: R10.84 Generalized abdominal pain (principal); I10 Essential (primary) hypertension; Z90.89 Acquired absence of other organs
CPT/HCPCS: 76705

== ENCOUNTER 2023-06-14 17:57 | Emergency (ER) | payer MEDICARE, BC ==
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
[2023-06-14 18:12] VITALS: TEMP 98.6
--- NOTE | 2023-06-14 19:31 | XR ---
EXAMINATION TYPE: XR chest 2V DATE OF EXAM: 06/14/2023 7:19 PM CLINICAL INDICATION:Female, 73 years old with history of Chest Pain; COMPARISON: Chest radiographs from 05/02/2023. TECHNIQUE: XR chest 2V Frontal and lateral views of the chest. FINDINGS: Lungs/Pleura: There is no evidence of pleural effusion, focal consolidation, or pneumothorax. Pulmonary vascularity: Unremarkable. Heart/mediastinum: Cardiomediastinal silhouette is unremarkable. Musculoskeletal: No acute osseous pathology. Remote appearing left clavicle fracture. IMPRESSION: 1. No acute cardiopulmonary disease process. 2. COPD changes.
[2023-06-14 20:33] LABS: ALT 27 U/L (4-34); AST 32 U/L (14-36); African American GFR (CKD) 57 (>60 ml/min/1.73 sqM); Albumin 3.8 g/dL (3.5-5.0); Alkaline Phosphatase 114 U/L (38-126); Anion Gap 10 mmol/L; Blood Urea Nitrogen 25 mg/dL (7-17); Calcium 9.2 mg/dL (8.4-10.2); Carbon Dioxide 21 mmol/L (22-30); Chloride 109 mmol/L (98-107); Glucose 99 mg/dL (74-99); Magnesium 2.5 mg/dL (1.6-2.3); Non-African American GFR(CKD) 49 (>60 ml/min/1.73 sqM); Potassium 4.2 mmol/L (3.5-5.1); Sodium 140 mmol/L (137-145); Total Bilirubin 0.4 mg/dL (0.2-1.3); Total Protein 6.5 g/dL (6.3-8.2)
[2023-06-14 21:10] LABS: INR 0.9 (<1.2); Partial Thromboplastin Time 22.5 sec (22.0-30.0); Prothrombin Time 10.3 sec (10.0-12.5)
[2023-06-14 21:36] LABS: Neutrophils % (M) 65 %; Nucleated Red Blood Cells 0 /100 WBC (0-0); Total Cells Counted 100
[2023-06-14 22:15] LABS: Eosinophils # (M) 0.24 k/uL (0-0.7); HCT 41.7 % (34.0-46.0); HGB 13.9 gm/dL (11.4-16.0); Monocytes # (M) 0.79 k/uL (0-1.0); Neutrophils # (M) 3.97 k/uL (1.3-7.7); RBC 4.35 m/uL (3.80-5.40); WBC 6.1 k/uL (3.8-10.6)
[2023-06-14 22:16] LABS: MCH 31.8 pg (25.0-35.0); MCHC 33.3 g/dL (31.0-37.0); MCV 95.7 fL (80.0-100.0); RDW 13.5 % (11.5-15.5)
[2023-06-14 22:17] LABS: Mean Platelet Volume 7.5; Platelet Count 180 k/uL (150-450)
[2023-06-14 22:18] LABS: Basophils % (A) 1 %; Eosinophils % (A) 2 %; Lymphocytes % (A) 20 %; Monocytes % (A) 6 %; Neutrophils % (A) 66 %
[2023-06-14 22:19] LABS: Basophils # (A) 0.1 k/uL (0-0.2); Eosinophils # (A) 0.1 k/uL (0-0.7); Lymphocytes # (A) 1.2 k/uL (1.0-4.8); Monocytes # (A) 0.4 k/uL (0-1.0); Neutrophils # (A) 4.1 k/uL (1.3-7.7)
[2023-06-14 23:09] VITALS: BP 137/80; PULSE 61; RESP 18
== END 2023-06-14 23:05 | disposition home or self-care (01) ==
LOC: EC 17:57
DX: R07.89 Other chest pain (principal); R00.1 Bradycardia, unspecified; I10 Essential (primary) hypertension; I25.10 Atherosclerotic heart disease of native coronary artery without angina pectoris; I25.2 Old myocardial infarction; E78.5 Hyperlipidemia, unspecified; I48.91 Unspecified atrial fibrillation; K21.9 Gastro-esophageal reflux disease without esophagitis; M19.90 Unspecified osteoarthritis, unspecified site; F41.9 Anxiety disorder, unspecified; Z79.02 Long term (current) use of antithrombotics/antiplatelets; Z79.01 Long term (current) use of anticoagulants; Z79.899 Other long term (current) drug therapy; Z88.5 Allergy status to narcotic agent; Z88.8 Allergy status to other drugs, medicaments and biological substances; Z95.5 Presence of coronary angioplasty implant and graft; Z90.49 Acquired absence of other specified parts of digestive tract
CPT/HCPCS: 36415; 71046; 80053; 83735; 84484; 85025; 85610; 85730; 93005; 99285

== ENCOUNTER 2023-06-30 05:52 | Emergency (ER) | payer MEDICARE, BC ==
[2023-06-30 06:36] VITALS: RESP 18; TEMP 98.1
[2023-06-30] MEDS ORDERED: ORPHENADRINE 30 MG/ML 2 ML VIAL IVP STA (07:02)
[2023-06-30] MEDS ORDERED: KETOROLAC 15 MG/ML 1 ML VIAL IVP STA (07:02)
[2023-06-30] MEDS ORDERED: HYDROmorphone 0.5 MG/0.5 ML SYRINGE IVP STA (07:03)
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
[2023-06-30 08:28] LABS: Appearance,Urine Cloudy (Clear); Bilirubin,Urine Negative (Negative); Blood,Urine Small (Negative); Calcium Oxalate Crystals,Urine Few /hpf; Color,Urine Yellow; Glucose,Urine (UA) Negative (Negative); Ketones,Urine Negative (Negative); Leukocyte Esterase,Urine Trace (Negative); Mucus,Urine Occasional /hpf; Nitrite,Urine Negative (Negative); Protein,Urine 2+ (Negative); RBC,Urine 5 /hpf (0-5); Specific Gravity,Urine 1.034 (1.001-1.035); Squamous Epithelial Cell,Urine 5 /hpf (0-4); WBC,Urine 16 /hpf (0-5)
[2023-06-30 09:42] VITALS: PULSE 58
[2023-06-30 09:51] LABS: Basophils % (A) 0 %; Eosinophils % (A) 1 %; HCT 39.9 % (34.0-46.0); HGB 12.9 gm/dL (11.4-16.0); Lymphocytes % (A) 15 %; MCH 30.8 pg (25.0-35.0); MCHC 32.4 g/dL (31.0-37.0); MCV 95.3 fL (80.0-100.0); Mean Platelet Volume 7.6; Monocytes # (A) 0.5 k/uL (0-1.0); Monocytes % (A) 8 %; Neutrophils # (A) 4.8 k/uL (1.3-7.7); Neutrophils % (A) 72 %; Platelet Count 184 k/uL (150-450); RBC 4.19 m/uL (3.80-5.40); RDW 13.2 % (11.5-15.5); WBC 6.6 k/uL (3.8-10.6)
[2023-06-30 09:59] LABS: ALT 80 U/L (4-34); AST 163 U/L (14-36); African American GFR (CKD) 59 (>60 ml/min/1.73 sqM); Albumin 3.8 g/dL (3.5-5.0); Alkaline Phosphatase 93 U/L (38-126); Anion Gap 10 mmol/L; Blood Urea Nitrogen 26 mg/dL (7-17); Carbon Dioxide 20 mmol/L (22-30); Chloride 107 mmol/L (98-107); Glucose 106 mg/dL (74-99); Lipase 105 U/L (23-300); Non-African American GFR(CKD) 52 (>60 ml/min/1.73 sqM); Potassium 4.3 mmol/L (3.5-5.1); Sodium 137 mmol/L (137-145); Total Bilirubin 0.8 mg/dL (0.2-1.3); Total Protein 6.4 g/dL (6.3-8.2)
--- NOTE | 2023-06-30 10:20 | CT ---
EXAMINATION TYPE: CT abdomen pelvis wo con DATE OF EXAM: 06/30/2023 COMPARISON: None INDICATION: Left flank pain DLP: 823..8 mGycm, Automated exposure control for dose reduction was used. CONTRAST: 0 mL of Isovue 300. Study performed without Oral Contrast TECHNIQUE: Axial images were obtained from above the diaphragm to the pubic rami in the axial plane a t 5 mm thick sections. Reconstructed images are reviewed on the computer in the coronal plane. FINDINGS: Limited CT sections are obtained the lung bases. There is some minimal infiltrate at the left base. Correlate for subsegmental atelectasis. CT ABDOMEN: Liver: Normal Spleen: Normal Pancreas: Normal Adrenal glands: The adrenal glands are normal. Gallbladder: Surgically absent Kidneys: No masses are evident. No hydronephrosis is present. No cysts are present. No renal stone s are evident. Aorta: Vascular calcification is within the aorta. Inferior vena cava: Normal. CT PELVIS: Loops of bowel within the abdomen and pelvis are normal. This study is without oral contrast limi ting evaluation. Appendix: Not identified. No dilated tubular structure or inflammatory changes evident. Urinary bladder: Decompressed limiting evaluation Genitourinary structures: Uterus and ovaries are not Osseous structures: No suspicious lytic or sclerotic lesions. There is a left hip prosthesis with art ifact. IMPRESSION: 1. No suspicious abnormalities of the flank pain.
[2023-06-30] MEDS ORDERED: DEXAMETHASONE SOD PHOSPHATE 10 MG/ML 1 ML VIAL IVP STA (10:40)
[2023-06-30] MEDS ORDERED: LIDOCAINE 4% PATCH TOPICAL ONE (10:40)
[2023-06-30 11:34] VITALS: BP 128/73
== END 2023-06-30 11:26 | disposition home or self-care (01) ==
LOC: EC 05:52
DX: S39.012A Strain of muscle, fascia and tendon of lower back, initial encounter (principal); I48.91 Unspecified atrial fibrillation; K21.9 Gastro-esophageal reflux disease without esophagitis; E78.5 Hyperlipidemia, unspecified; I10 Essential (primary) hypertension; I25.2 Old myocardial infarction; M19.90 Unspecified osteoarthritis, unspecified site; F41.9 Anxiety disorder, unspecified; Z79.899 Other long term (current) drug therapy; Z88.5 Allergy status to narcotic agent; Z88.8 Allergy status to other drugs, medicaments and biological substances; X58.XXXA Exposure to other specified factors, initial encounter
CPT/HCPCS: 36415; 80053; 83605; 83690; 85025; 81001; 87086; 74176; 99284; 96374; 96375 ×3; J1100; J2360; J1885; J1170

== ENCOUNTER 2023-08-13 08:56 | Day surgery (SDC) | payer MEDICARE, BC ==
[~2023-08-13 08:56] MED LIST changes: +ASPIRIN 325 MG TAB PO ONE; -ASPIRIN 325 MG TAB PO STA; +HEPARIN SODIUM,PORCINE (1 ML) 2,500 UNIT in SODIUM CHLORIDE 0.9% 250 ML IRRIGATION PRN; +HEPARIN SODIUM,PORCINE 10,000 UNIT in SODIUM CHLORIDE 0.9% 1,000 ML IRRIGATION PRN; -SODIUM CHLORIDE 0.9% 500 ML 500 ML IV ONE
[2023-08-13] MEDS: SODIUM CHLORIDE 0.9% 1,000 ML in EMPTY BAG 1 BAG IV ONE (09:14)
[2023-08-13 09:45] VITALS: TEMP 97.7
[2023-08-13] MEDS ORDERED: LIDOCAINE 1% INJ 10MG/ML (20 ML MDV) ONE (11:25)
[2023-08-13] MEDS: MIDAZOLAM 2 MG/2 ML VIAL IVP ONE (11:40)
[2023-08-13] MEDS: LIDOCAINE 1% INJ 10MG/ML (20 ML MDV) SQ ONE (11:43)
[2023-08-13] MEDS: HYDROmorphone 0.5 MG/0.5 ML SYRINGE IVP ONE (11:46)
[2023-08-13] MEDS: HEPARIN SODIUM 1,000 UN/ML (10ML VL) IVP ONE (11:59)
[2023-08-13] MEDS: IOPAMIDOL-370 100ML BTL INJ ONE (12:04)
[2023-08-13] MEDS ORDERED: RX INFO: IV CONTRAST WAS GIVEN 1 EACH MISC MISCELLANE PRN (12:12)
[2023-08-13] MEDS ORDERED: SODIUM CHLORIDE 0.9% 1,000 ML IV SCH (12:15)
--- NOTE | 2023-08-13 12:20 | P.PCN ---
Date of Procedure: 08/13/23 Operative Findings: CARDIAC CATHETERIZATION PERFORMING PHYSICIAN: Rhett Lees MD, RPVI PROCEDURE PERFORMED: 1. Selective right and left coronary angiogram 2. Left heart catheterization 3. iFR of the LCX 4. Ultrasound-guided access of the right common femoral artery and right VALVE STEAMER angiogram INDICATION: Chest discomfort and this 73-year-old female patient with known history of CAD and prior stenting of the left circumflex was underwent myocardial perfusion imaging stress test showed inferolateral ischemia COMPLICATION: None APPROACH: Right common femoral artery LEVEL OF SEDATION: Moderate with sedation in length of 24 minutes PROCEDURE DESCRIPTION: After obtaining an informed consent, the patient was brought to cardiac equipment operator/laborer/supervisor. Local anesthesia was performed using lidocaine subcutaneously. The right common femoral artery was cannulated using micropuncture technique under ultrasound guidance, the micropuncture wire passed easily then the micropuncture sheath was advanced over the wire then the micropuncture sheath was exchanged over 035 wire into a 6-[place]ian sheath.Selective right and left coronary angiogram using a 6-[place] JR4 and JL catheters. Following that we did left heart catheterization using 6-[place] pigtail catheter. After that we decided to do Doppler wire measurement of the left circumflex. After zeroing the Doppler wire and equalizing between the Doppler wire and guiding catheter patient started on heparin and she was given 4000 of heparin IV. Subsequently I did engage the left main and then I did wire the left circumflex. We did iFR and that came in to be nonischemic at 1.0. After that I did selective right common femoral artery angiogram before I deployed the Angio- Seal The procedure was completed there was no complication. SELECTIVE CORONARY ANGIOGRAM: The right coronary artery: Large caliber vessel and a dominant vessel was mild disease only Left main: Has mild disease only The left circumflex: Large caliber vessel nondominant vessel. The ostial left circumflex has an intermediate lesion documented to be nonfocal limiting by Doppler wire. The left circumflex proximally is a stented and the stent is patent. OM1 appears to be angiographically normal The left anterior descending artery: Large caliber vessel appears to have mild disease only and gives rise into di agonal branch which appears to be normal HEMODYNAMICS: The LVEDP was 12 mmHg was no significant gradient across aortic valve CONCLUSION: 1. Patent stent in the prox. LCX. Interm. dx of the ostial LC documented to be non-flow limiting by Doppler wire 2. Mild dx of the RCA 3. Normal LVEDP POSTPROCEDURE MANAGEMENT: Medical Tx
[2023-08-13] MEDS: SODIUM CHLORIDE 0.9% 500 ML 500 ML IV ONE ×2 (13:01→14:54)
[2023-08-13 15:08] VITALS: RESP 16
[2023-08-13 15:40] VITALS: BP 126/66; PULSE 49
== END 2023-08-13 16:05 | disposition home or self-care (01) ==
LOC: CATHCVL 08:56
PROVIDERS: ATTEND Internal Medicine Interventional Cardiology
DX: I25.10 Atherosclerotic heart disease of native coronary artery without angina pectoris (principal); I10 Essential (primary) hypertension; E78.5 Hyperlipidemia, unspecified; F17.210 Nicotine dependence, cigarettes, uncomplicated; Z79.899 Other long term (current) drug therapy; Z95.5 Presence of coronary angioplasty implant and graft
CPT/HCPCS: 93458; 93799; 76937; C1760; C1887; C1769 ×3; C1894; J2250; J2001; J1644; J1170; Q9967

== ENCOUNTER → 2023-11-13 | Outpatient (CLI) | payer MEDICARE, BC ==
--- NOTE | 2023-11-13 10:00 | XR ---
EXAMINATION TYPE: XR chest 2V DATE OF EXAM: 11/13/2023 COMPARISON: 06/14/2023 TECHNIQUE: PA and lateral views submitted. HISTORY: Shortness of breath FINDINGS: The lungs are clear and there is no pneumothorax, pleural effusion, or focal pneumonia. Heart size normal and no overt failure. Osseous structures demonstrate hypertrophic and degenerative changes of the spine. Correlate for mild COPD. There is a subsegmental changes at the right lung base with coars ened interstitium. IMPRESSION: 1. Right basilar atelectasis favored over early infiltrate correlate clinically. 2. Coarsened interstitium may reflect a mild chronic interstitial lung disease or bronchitis. Mild in terstitial pneumonitis venous congestion not excluded. Correlate clinically.
== END | disposition home or self-care (01) ==
LOC: LABWHC1 09:44
PROVIDERS: ATTEND Family Medicine
DX: J98.11 Atelectasis (principal); R06.02 Shortness of breath
CPT/HCPCS: 71046

== ENCOUNTER → 2023-12-10 | Outpatient (CLI) | payer MEDICARE, BC | LOC: CPPFTMAIN 07:09 | PROVIDERS: ATTEND Family Medicine | DX: I48.0 Paroxysmal atrial fibrillation (principal); Z88.8 Allergy status to other drugs, medicaments and biological substances; Z88.5 Allergy status to narcotic agent | CPT/HCPCS: 94060; 94726; 94729 ==

== ENCOUNTER 2024-04-21 10:01 | Observation (INO) | payer MEDICARE, BC ==
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
--- NOTE | 2024-04-21 10:35 | XR ---
EXAMINATION TYPE: XR chest 2V DATE OF EXAM: 04/21/2024 COMPARISON: NONE CLINICAL INDICATION: Female, 74 years old with history of Chest Pain; , TECHNIQUE: XR chest 2V views of the chest. FINDINGS: The lungs are clear and there is no pneumothorax, pleural effusion, or focal pneumonia. Heart size normal and no overt failure. Osseous structures demonstrate hypertrophic and degenerative changes of the spine. Generalized osteopenia with left clavicular remote fracture. AC joint arthropathy. Atheros clerotic change aorta. Surgical clips in the abdomen. IMPRESSION: 1. No acute process. [facility], , 04/21/2024 10:32 AM
[2024-04-21 10:40] LABS: Anisocytosis Slight; Basophils % (A) 0 %; Eosinophils # (A) 0.1 k/uL (0-0.7); Eosinophils % (A) 1 %; HCT 43.9 % (34.0-46.0); HGB 13.7 gm/dL (11.4-16.0); Lymphocytes % (A) 20 %; MCH 27.9 pg (25.0-35.0); MCHC 31.2 g/dL (31.0-37.0); MCV 89.5 fL (80.0-100.0); Mean Platelet Volume 7.8; Monocytes # (A) 0.3 k/uL (0-1.0); Monocytes % (A) 5 %; Neutrophils # (A) 3.5 k/uL (1.3-7.7); Neutrophils % (A) 71 %; Platelet Count 212 k/uL (150-450); RBC 4.91 m/uL (3.80-5.40); RDW 16.2 % (11.5-15.5); WBC 4.9 k/uL (3.8-10.6)
[2024-04-21 10:48] LABS: Partial Thromboplastin Time 24.9 sec (22.0-30.0)
[2024-04-21] MEDS: ASPIRIN 81 MG PO STA (11:17)
[2024-04-21 11:31] LABS: ALT 72 U/L (4-34); AST 97 U/L (14-36); African American GFR (CKD) 49 (>60 ml/min/1.73 sqM); Albumin 3.8 g/dL (3.5-5.0); Alkaline Phosphatase 87 U/L (38-126); Anion Gap 8 mmol/L; Blood Urea Nitrogen 15 mg/dL (7-17); Calcium 8.9 mg/dL (8.4-10.2); Carbon Dioxide 20 mmol/L (22-30); Chloride 111 mmol/L (98-107); Glucose 133 mg/dL (74-99); Magnesium 2.5 mg/dL (1.6-2.3); Non-African American GFR(CKD) 43 (>60 ml/min/1.73 sqM); Potassium 3.3 mmol/L (3.5-5.1); Sodium 139 mmol/L (137-145); Total Bilirubin 0.5 mg/dL (0.2-1.3); Total Protein 6.5 g/dL (6.3-8.2)
[2024-04-21 11:36] LABS: NT-Pro-B-Type Natriuretic Pept 5150 pg/mL
[2024-04-21] MEDS: SODIUM CHLORIDE 0.9% 500 ML 500 ML IV STA (12:38)
[2024-04-21] MEDS ORDERED: NALOXONE 0.4 MG/ML 1 ML VIAL IV PRN (13:56)
[2024-04-21] MEDS ORDERED: Potassium Replacement Protocol 1 EACH MISC MISCELLANE PRN (14:44)
[2024-04-21] MEDS: POTASSIUM CHLORIDE ER 20 MEQ TAB.ER PO SCH (15:19)
[2024-04-21] MEDS: METOPROLOL TARTRATE 25 MG TAB PO SCH (19:50)
[2024-04-21] MEDS: MEMANTINE 10 MG TAB PO SCH (19:50)
[2024-04-21] MEDS: PANTOPRAZOLE 40 MG TABLET PO SCH (19:50)
[2024-04-21] MEDS: LORazepam 1 MG TAB PO SCH (19:50)
[2024-04-21] MEDS: RIVAROXABAN 15 MG TAB PO SCH (19:50)
[2024-04-21] MEDS: guaiFENesin SYRUP 100MG/5ML 200 MG/10 ML CUP PO PRN (22:04)
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
[2024-04-22 07:30] VITALS: RESP 16
[2024-04-22] MEDS ORDERED: amLODIPine 2.5 MG TAB PO SCH (09:00)
[2024-04-22] MEDS ORDERED: AMIODARONE 100 MG TAB PO SCH (09:00)
[2024-04-22] MEDS ORDERED: FUROSEMIDE 20 MG TAB PO SCH (09:00)
[2024-04-22 09:02] LABS: ALT 88 U/L (8-44); AST 77 U/L (13-35); Albumin 3.7 g/dL (3.8-4.9); Albumin/Globulin Ratio 1.76 Ratio (1.60-3.17); Alkaline Phosphatase 82 U/L (41-126); BUN/Creat Ratio 13.92 Ratio (12.00-20.00); Blood Urea Nitrogen 18.1 mg/dL (9.0-27.0); Calcium 8.6 mg/dL (8.7-10.3); Carbon Dioxide 20.6 mmol/L (21.6-31.8); Chloride 110 mmol/L (96-109); Globulin 2.1 g/dL (1.6-3.3); Glucose 88 mg/dL (70-110); Potassium 4.1 mmol/L (3.5-5.5); Sodium 140 mmol/L (135-145); Total Bilirubin 0.3 mg/dL (0.3-1.2); Total Protein 5.8 g/dL (6.2-8.2)
[2024-04-22] MEDS: ISOSORBIDE MONONITRATE ER 30 MG TAB.ER.24H PO SCH (09:30)
[2024-04-22] MEDS: NON FORMULARY DRUG (Rosuvastatin Calcium [Crestor] 40 MG Tablet) PO SCH (09:33)
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
[2024-04-22] MEDS: AMIODARONE 100 MG TAB PO SCH (10:54)
[2024-04-22 13:51] VITALS: BP 92/57; PULSE 88; TEMP 98.2
--- NOTE | 2024-05-09 13:20 | P.DS ---
Providers Date of admission: 04/21/24 13:00 Expected date of discharge: 04/22/24 Attending physician: Belkys Cotton Consults: 04/21/24 13:56 Consult Physician Stat Consulting Provider: Rhett Lees Consult Reason/Comments: Chest pain with dizziness and hypotension Do you want consulting provider notified?: Yes Primary care physician: [facility] Course: Discharge diagnosis Dizziness and near syncopal episode likely due to hypotension Chest pressure/pain rule out ACS Recent URI with cold-like symptoms Mild transaminitis Hypokalemia Atrial fibrillation/flutter with controlled heart rate. On anticoagulation with Xarelto and also on amiodarone. Coronary artery disease history of stent placement 2 years ago Hypertension Hyperlipidemia Osteoarthritis Anxiety GI prophylax with PPI Hospital course Patient is a 73-year-old female with a known history of atrial fibrillation on anticoagulant with Xarelto, CAD status post stent placement 2 years ago, hypertension, hyperlipidemia, osteoarthritis, anxiety and other medical problems presents to ER with complaints of chest pressure and presyncopal episode. Patient states that she is having cold like symptoms for the past 1 week. She has been having hacking cough. Yesterday she felt dizzy and felt heaviness in the chest and almost passed out. Associate with shortness of breath. Patient also states that her blood pressure was low at the time. Patient was started on Lasix for about a month ago. She has been taking Lasix 20 mg daily currently. Denied any fever or chills. No nausea vomiting abdomin al pain or diarrhea. Denied any palpitations or leg swelling. Laboratory showed WBC 4.9 hemoglobin 13.7 platelets 212 sodium 139 potassium four 3.3 chloride 111 bicarb is 20 BUN 15 and creatinine 1.24 and blood sugar 133 magnesium 2.5 AST 97 ALT 72 and alk phos 87 troponin x 3 negative and proBNP 5150 Influenza A B RSV and COVID-19 PCR not detected. Chest x-ray showed no acute process. EKG showed atrial flutter with low voltage QRS and heart rate 68.Blood pressure went down to 87 over 59 mmHg during admission. Patient is on room air. Patient was given 1 L fluid bolus with normal saline in the ER. Patient was seen by cardiology and recommends to hold amlodipine due to hypotension. Started back on metoprolol and Imdur. Continue with amiodarone and also continue to hold Lasix. Patient is improved symptomatically and is being discharged home today. Laboratory data showed sodium 140 potassium improved to 4.1 chloride 110 bicarb is 20.6 BUN 18.1 creatinine 1.3 and blood sugar 88. Patient was advised to follow with primary care physician and cardiology as an outpatient. PHYSICAL EXAMINATION: Patient is lying in the bed comfortably, no acute distress, awake alert and oriented.. HEENT: Normocephalic. Neck is supple. Pupils reactive. Nostrils clear. Oral cavity is moist. Neck reveals no JVD, carotid bruits, or thyromegaly. CHEST EXAMINATION: Trachea is central. Symmetrical expansion. Lung coronado clear to auscultation and percussion. CARDIAC: Normal S1, S2 with no gallops. No murmurs ABDOMEN: Soft. Bowel sounds normal. No organomegaly. No abdominal bruits. Extremities: reveal no edema. No clubbing or cyanosis Neurologically awake, alert, oriented x3 with well-coordinated movements. No focal deficits noted Skin: No rash or skin lesions. Psychiatric: Coperative. Nonsuicidal Musculoskeletal: No joint swelling or deformity. Normal range of motion. Vitals: Vital Signs Temp Pulse Pulse Resp BP BP Pulse Ox 04/22/24 07:00 97.9 F 88 16 93/60 95 04/22/24 03:06 98.7 F 78 17 97/62 99 04/22/24 01:42 16 04/21/24 19:08 98.5 F 65 16 115/71 96 04/21/24 15:00 97.8 F 58 L 16 105/70 96 04/21/24 14:38 98.2 F 73 18 100/63 97 04/21/24 13:09 71 18 108/67 68 L 04/21/24 12:11 71 16 87/59 95 04/21/24 11:18 64 18 119/75 97 04/21/24 10:16 70 18 119/75 97 Intake and Output Patient Condition at Discharge: Good Plan - Discharge Summary Discharge Rx Participant: No New Discharge Prescriptions: Continue Memantine [Namenda] 10 mg PO BID Vitamin E 800 unit PO DAILY Rosuvastatin Calcium [Crestor] 40 mg PO DAILY Omeprazole [PriLOSEC] 20 mg PO BID Amiodarone [Cordarone] 100 mg PO DAILY Metoprolol Tartrate [Lopressor] 25 mg PO BID 30 Days #60 tab Isosorbide Mononitrate [Isosorbide Mononitrate ER] 30 mg PO DAILY Cran Barrier 1 tab PO DAILY LORazepam [Ativan] 2 mg PO BID Rivaroxaban [Xarelto] 20 mg PO HS Ipratropium [place] 0.06%Nasal [Atrovent Nasal 0.06%] 2 spray EA NOSTRIL TID PRN PRN Reason: Allergy Symptoms Changed Furosemide [Lasix] 20 mg PO DAILY PRN #0 PRN Reason: leg swelling Discontinued amLODIPine [Norvasc] 2.5 mg PO DAILY Discharge Medication List Memantine [Namenda] 10 mg PO BID 06/28/20 [History] Rosuvastatin Calcium [Crestor] 40 mg PO DAILY 05/06/21 [History] Vitamin E 800 unit PO DAILY 05/06/21 [History] Omeprazole [PriLOSEC] 20 mg PO BID 02/09/22 [History] Amiodarone [Cordarone] 100 mg PO DAILY 04/01/22 [History] Metoprolol Tartrate [Lopressor] 25 mg PO BID 30 Days #60 tab 04/02/22 [Rx] Isosorbide Mononitrate [Isosorbide Mononitrate ER] 30 mg PO DAILY 08/08/23 [History] Cran Barrier 1 tab PO DAILY 04/21/24 [History] Ipratropium [place] 0.06%Nasal [Atrovent Nasal 0.06%] 2 spray EA NOSTRIL TID PRN 04/21/24 [History] LORazepam [Ativan] 2 mg PO BID 04/21/24 [History] Rivaroxaban [Xarelto] 20 mg PO HS 04/21/24 [History] Furosemide [Lasix] 20 mg PO DAILY PRN #0 04/22/24 [Rx] Follow up Appointment(s)/Referral(s): Rhett Lees MD [STAFF PHYSICIAN] - 1 Week (Office will callwith appointment time and date.) Karlos Guajardo DO [Primary Care Provider] - 1-2 days Patient Instructions/Handouts: Chest Pain (ED) Activity/Diet/Wound Care/Special Instructions: RETURN FOR WQRSENING SYMPTOMS, PROBLEMS, OR CONCERNS. Discharge Disposition: HOME SELF-CARE
== END 2024-04-22 15:10 | disposition home or self-care (01) ==
LOC: EC 10:01 → 6NMEDSUR 13:00
PROVIDERS: ADMIT Internal Medicine; ATTEND Internal Medicine
DX: J06.9 Acute upper respiratory infection, unspecified (principal); I95.9 Hypotension, unspecified; I48.0 Paroxysmal atrial fibrillation; I48.3 Typical atrial flutter; E87.6 Hypokalemia; R74.01 Elevation of levels of liver transaminase levels; E78.5 Hyperlipidemia, unspecified; I25.10 Atherosclerotic heart disease of native coronary artery without angina pectoris; F41.9 Anxiety disorder, unspecified; M19.90 Unspecified osteoarthritis, unspecified site; I25.2 Old myocardial infarction; E66.9 Obesity, unspecified; I10 Essential (primary) hypertension; Z79.01 Long term (current) use of anticoagulants; Z79.899 Other long term (current) drug therapy; Z82.49 Family history of ischemic heart disease and other diseases of the circulatory system; Z88.5 Allergy status to narcotic agent; Z88.8 Allergy status to other drugs, medicaments and biological substances; Z95.5 Presence of coronary angioplasty implant and graft
CPT/HCPCS: 99285; 36415; 93005; 83880; 80053 ×2; 83735; 84484; 85025; 85610; 85730; 87636; 71046; G0378 ×2

== ENCOUNTER → 2024-05-29 | Day surgery (SDC) | payer MEDICARE, BC ==
[~2024-05-29] MED LIST changes: -ALPRAZolam 0.25 MG TAB PO PRN; -ALPRAZolam 0.5 MG TAB PO PRN; -ASPIRIN 325 MG TAB PO ONE; -HEPARIN SODIUM,PORCINE (1 ML) 2,500 UNIT in SODIUM CHLORIDE 0.9% 250 ML IRRIGATION PRN; -HEPARIN SODIUM,PORCINE 10,000 UNIT in SODIUM CHLORIDE 0.9% 1,000 ML IRRIGATION PRN; +LACTATED RINGERS 1,000 ML IV SCH; +LIDOCAINE 1% (10MG/ML) FOR IV START INTRADERMA PRN; +LIDOCAINE 1% INJ 10MG/ML (20 ML MDV) ONE; -NITROGLYCERIN SL TABS 0.4 MG TAB SUBLINGUAL PRN; +PROPOFOL 10 MG/ML 20 ML VIAL IV ONE; +SODIUM CHLORIDE 0.9% 1,000 ML IV SCH
[2024-05-29] MEDS: SODIUM CHLORIDE 0.9% 500 ML 500 ML IV ONE (07:05)
[2024-05-29] MEDS: IV FLUID CONTINUATION 1,000 ML IV ONE (07:12)
[2024-05-29 07:16] VITALS: TEMP 97
[2024-05-29 07:58] VITALS: RESP 16
[2024-05-29 07:58] LABS: African American GFR (CKD) 56 (>60 ml/min/1.73 sqM); Anion Gap 6 mmol/L; Blood Urea Nitrogen 29 mg/dL (7-17); Calcium 9.5 mg/dL (8.4-10.2); Carbon Dioxide 17 mmol/L (22-30); Chloride 115 mmol/L (98-107); Glucose 95 mg/dL (74-99); Non-African American GFR(CKD) 49 (>60 ml/min/1.73 sqM); Potassium 4.7 mmol/L (3.5-5.1); Sodium 138 mmol/L (137-145)
--- NOTE | 2024-05-29 08:28 | P.PCN ---
Date of Procedure: 05/29/24 Operative Findings: Cardioversion Report Performing physician Rhett Lees M.D. Procedure performed Successful cardioversion of atrial fibrillation to normal sinus mechanism using 200 J at first attempt Indication Symptomatic atrial fibrillation Complication None Level of sedation The procedure was performed under deep sedation using propofol with ROOFING FOREMAN in the room Procedure description After obtaining an informed consent the patient was brought to the recovery room. Sedation was introduced using propofol with ROOFING FOREMAN in the room. Subsequently the patient cardioverted from atrial fibrillation to normal sinus mechanism using 200 J and first attempt Conclusion Successful cardioversion of atrial fibrillation to normal sinus mechanism using 200 J Postprocedure management Continue the current medical regimen Continue oral anticoagulation Follow-up with the patient
--- NOTE | 2024-05-29 08:28 | P.PCN ---
Date of Procedure: 05/29/24 Operative Findings: TRANSESOPHAGEAL ECHOCARDIOGRAM CLINICAL TRIAL DATA MANAGER: CHRIS RICE MD, RPVI INDICATION: Rule out intracardiac thrombus before cardioversion SEDATION: Conscious sedation COMPLICATION: None LEVEL OF SEDATION Moderate with sedation length about 12 minutes and the procedure was performed using propofol with FIG CAPRIFIER in the room PROCEDURE DESCRIPTION: After obtaining an informed consent, the patient was brought to transesophageal echocardiogram room. Pulse oximetry and heart monitors were attached to the patient. The patient throat was sprayed using lidocaine. The patient was turned into left lateral position. After that a bite guard was placed. After an appropriate conscious sedation was initiated, the transesophageal echocardiogram was advanced through a bite guard into the mid esophagus. A 2-D echocardiogram images, color Doppler images, continuous wave images, pulse-wave images, of various cardiac structure were performed. After that the transesophageal echocardiogram probe was advanced into the stomach and fixed to obtain transgastric view was. The probe was brought into the mid esophagus. Inter-atrial septum was interrogated using 2D images, color Doppler images, and then contrast study. After that transesophageal echocardiogram was withdrawn out and upon withdrawing the descending thoracic aorta all the way up to the arch was evaluated. CONCLUSION: 1. Impaired LV function with EF between 40 to 45% 2. Severe biatrial enlarged 3. Intact left atrial appendage and interatrial septum 4. Mild to moderate mitral and tricuspid regurgitation 5. Aortic sclerosis with no stenosis or insufficiency 6. No pericardial effusion
[2024-05-29 09:10] VITALS: BP 130/82; PULSE 54
== END ==
LOC: OR 06:19
PROVIDERS: ATTEND Internal Medicine Interventional Cardiology
DX: I25.10 Atherosclerotic heart disease of native coronary artery without angina pectoris (principal); I70.0 Atherosclerosis of aorta; I48.19 Other persistent atrial fibrillation; I10 Essential (primary) hypertension; E78.5 Hyperlipidemia, unspecified; I38 Endocarditis, valve unspecified; N39.3 Stress incontinence (female) (male); M19.90 Unspecified osteoarthritis, unspecified site; C44.90 Unspecified malignant neoplasm of skin, unspecified; L71.9 Rosacea, unspecified; K21.9 Gastro-esophageal reflux disease without esophagitis; Z88.8 Allergy status to other drugs, medicaments and biological substances; Z88.5 Allergy status to narcotic agent; Z79.02 Long term (current) use of antithrombotics/antiplatelets; Z79.899 Other long term (current) drug therapy
CPT/HCPCS: 93312; 93320; 93325; 92960; 80048; J2003; J2704

== ENCOUNTER → 2024-09-14 | Outpatient (CLI) | payer MEDICARE, OTHER ==
--- NOTE | 2024-09-16 15:03 | MM ---
Reason for Exam: Screening (asymptomatic). Last mammogram was performed 1 year(s) and 1 month(s) ago. Patient History: Menarche at age 12. First Full-Term at age 17. Hysterectomy at age 32. Postmenopausal. Paternal aunt had breast cancer, age 45. Paternal aunt had breast cancer, age 60. Risk Values: Bing 5 year model risk: 1.3%. NCI Lifetime model risk: 2.8%. Prior Study Comparison: 06/25/2022 Bilateral Screening Mammogram, [facility]. 07/18/2023 Bilateral Screening Mammogram, [facility]. Tissue Density: The breasts are heterogeneously dense, which may obscure small masses. Findings: Analyzed By CAD. There is no suspicious group of microcalcifications or new suspicious mass in either breast. Overall Assessment: Benign, BI-RAD 2 Management: Screening Mammogram of both breasts in 1 year. . Patient should continue monthly self-breast exams. A clinical breast exam by your physician is recommended on an annual basis. This exam should not preclude additional follow-up of suspicious palpable abnormalities. Note on Bing scores and lifetime risk: 1. A Bing score greater than 3% is considered moderate risk. If this is the case, consider specialist referral to assess eligibility for a risk reducing agent. 2. If overall lifetime risk for the development of breast cancer is 20% or higher, the patient may qualify for future screening with alternating mammogram and breast MRI. [facility], , 09/16/2024 3:00 PM. Electronically signed and approved by: Sanju Zavala M.D. Radiologis
== END | disposition home or self-care (01) ==
LOC: RADMAMWWP 09:16
PROVIDERS: ATTEND Family Medicine
DX: Z12.31 Encounter for screening mammogram for malignant neoplasm of breast (principal); R92.333 Mammographic heterogeneous density, bilateral breasts; Z78.0 Asymptomatic menopausal state; Z80.3 Family history of malignant neoplasm of breast
CPT/HCPCS: 77063; 77067

== ENCOUNTER 2024-12-24 12:02 | Emergency (ER) | payer MEDICARE, OTHER ==
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
[2024-12-24] MEDS: SODIUM CHLORIDE 0.9% 1,000 ML IV STA (12:59)
[2024-12-24 13:12] LABS: Basophils # (A) 0.04 10*3/uL (0.00-0.10); Basophils % (A) 0.7 %; Eosinophils # (A) 0.10 10*3/uL (0.04-0.35); Eosinophils % (A) 1.7 %; HCT 41.5 % (37.2-46.3); HGB 13.8 g/dL (12.0-15.0); Lymphocytes # (A) 1.74 10*3/uL (0.90-5.00); Lymphocytes % (A) 29.8 %; MCH 31.2 pg (27.0-32.0); MCHC 33.3 g/dL (32.0-37.0); MCV 93.9 fL (80.0-97.0); Monocytes # (A) 0.63 10*3/uL (0.20-1.00); Monocytes % (A) 10.8 %; Neutrophils # (A) 3.32 10*3/uL (1.80-7.70); Neutrophils % (A) 56.8 %; Platelet Count 224 10*3/uL (140-440); RBC 4.42 10*6/uL (4.10-5.20); RDW 14.4 % (11.5-14.5); WBC 5.84 10*3/uL (4.50-10.00)
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
[2024-12-24 13:41] LABS: ALT 19 U/L (4-34); AST 28 U/L (14-36); African American GFR (CKD) 73 (>60 ml/min/1.73 sqM); Albumin 4.0 g/dL (3.5-5.0); Alkaline Phosphatase 77 U/L (38-126); Anion Gap 10 mmol/L; Blood Urea Nitrogen 25 mg/dL (7-17); Calcium 9.9 mg/dL (8.4-10.2); Carbon Dioxide 21 mmol/L (22-30); Chloride 106 mmol/L (98-107); Glucose 83 mg/dL (74-99); Non-African American GFR(CKD) 63 (>60 ml/min/1.73 sqM); Potassium 4.7 mmol/L (3.5-5.1); Sodium 137 mmol/L (137-145); Total Protein 6.3 g/dL (6.3-8.2)
[2024-12-24 14:45] LABS: Bilirubin,Urine Negative (Negative); Blood,Urine Negative (Negative); Color,Urine Colorless; Glucose,Urine (UA) Negative (Negative); Ketones,Urine Negative (Negative); Leukocyte Esterase,Urine Negative (Negative); Nitrite,Urine Negative (Negative); PH, Urine 6.5 (5.0-8.0); Protein,Urine Negative (Negative); Specific Gravity,Urine 1.005 (1.001-1.035); Urobilinogen,Urine <2.0 mg/dL (<2.0)
[2024-12-24 15:30] VITALS: BP 133/99; PULSE 67; RESP 17; TEMP 97.9
== END 2024-12-24 15:30 | disposition home or self-care (01) ==
LOC: EC 12:02
DX: R42 Dizziness and giddiness (principal); Z88.8 Allergy status to other drugs, medicaments and biological substances; Z88.5 Allergy status to narcotic agent; Z86.79 Personal history of other diseases of the circulatory system
CPT/HCPCS: 36415; 70450; 80053; 81003; 84484; 85025; 93005; 96360; 96361; 99284

== ENCOUNTER 2025-01-15 06:17 | Day surgery (SDC) | payer MEDICARE, OTHER ==
[~2025-01-15 06:17] MED LIST changes: -LACTATED RINGERS 1,000 ML IV SCH; -LIDOCAINE 1% (10MG/ML) FOR IV START INTRADERMA PRN; -LIDOCAINE 1% INJ 10MG/ML (20 ML MDV) ONE; -PROPOFOL 10 MG/ML 20 ML VIAL IV ONE
[2025-01-15] MEDS: IV FLUID CONTINUATION 500 ML IV ONE (07:11)
[2025-01-15] MEDS: SODIUM CHLORIDE 0.9% 500 ML 500 ML IV SCH (07:15)
[2025-01-15] MEDS ORDERED: PHENYLEPHRINE 10 MG/ML VIAL ONE (07:30)
[2025-01-15] MEDS ORDERED: PROPOFOL 10 MG/ML 20 ML VIAL IV ONE (07:30)
--- NOTE | 2025-01-15 08:03 | P.PCN ---
Date of Procedure: 01/15/25 Operative Findings: Cardioversion Report Performing physician Rhett Lees M.D. Procedure performed Successful cardioversion of atrial fibrillation to normal sinus mechanism using 120 J at second attempt Indication Symptomatic atrial fibrillation Complication None Level of sedation The procedure was performed under deep sedation using propofol with MID LEVEL PROVIDER in the room Procedure description After obtaining an informed consent the patient was brought to the recovery room. Sedation was introduced using propofol with MID LEVEL PROVIDER in the room. Subsequently the patient cardioverted from atrial fibrillation to normal sinus mechanism Conclusion Successful cardioversion of atrial fibrillation to normal sinus mechanism using 200 J Postprocedure management Continue the current medical regimen Continue oral anticoagulation Follow-up with the patient
[2025-01-15 08:18] VITALS: RESP 16; TEMP 96.8
[2025-01-15] MEDS: SODIUM CHLORIDE 0.9% 500 ML 500 ML IV ONE (08:58)
[2025-01-15 09:26] VITALS: BP 114/56; PULSE 52
== END 2025-01-15 09:39 | disposition home or self-care (01) ==
LOC: OR 06:17
PROVIDERS: ATTEND Internal Medicine Interventional Cardiology
DX: I25.10 Atherosclerotic heart disease of native coronary artery without angina pectoris (principal); I48.19 Other persistent atrial fibrillation; I38 Endocarditis, valve unspecified; I25.2 Old myocardial infarction; E78.5 Hyperlipidemia, unspecified; I10 Essential (primary) hypertension; Z87.820 Personal history of traumatic brain injury; Z90.49 Acquired absence of other specified parts of digestive tract; Z90.89 Acquired absence of other organs; Z89.522 Acquired absence of left knee; Z88.5 Allergy status to narcotic agent; Z79.01 Long term (current) use of anticoagulants; Z79.82 Long term (current) use of aspirin; Z79.899 Other long term (current) drug therapy
CPT/HCPCS: 92960; J2704; J2371